=== PATIENT | male | born 1970 | race Caucasian/White ===

== ENCOUNTER 2019-03-16 10:48 | Inpatient (IN) | payer OTHER ==
[2019-03-16] MEDS ORDERED: SODIUM CHLORIDE 0.9% 1000 ML INFUS.BAG IV ONE ×2 (11:19→12:26)
[2019-03-16] MEDS ORDERED: ACETAMINOPHEN 1000 MG/100 ML VIAL (NON FORMULARY) IVPB ONE (11:19)
--- NOTE | 2019-03-16 11:26 | PDOC ---
Documentation entered by Eli Keller SCRIBE, acting as scribe for Debbie Grimaldo DO. Debbie Grimaldo DO: This documentation has been prepared by the Arianna medeiros Adrianna, SCRIBE, under my direction and personally reviewed by me in its entirety. I confirm that the documentation accurately reflects all work, treatment, procedures, and medical decision making performed by me. History of Present Illness - General Chief Complaint: Pain, Acute Stated Complaint: FEVER Time Seen by Provider: 03/16/19 11:06 - History of Present Illness Initial Comments: The patient is a 48 year old male, with a significant PMH of HTN, CKD, and kidney stones, who presents to the ED for evaluation of fever for 2 days. Patient reports developing a subjective fever with cold sweats. He had been able to eat and drink normally at this time. Patient endorses associated low back pain. Patient flew in from [place] 8 days ago, and is staying for the month. He denies any other acute complaints. The patient notes he took his BP medications today, but has not taken anything for his fever at this time. Denies chest pain, SOB, cough, runny nose, sore throat, rash, abdominal pain, diarrhea, constipation, blood in stool, dysuria, hematuria, leg swelling, calf cramping. Allergies: NKA, NKDA Surgical History: Renal stone removal Social History: Denies EtOH, tobacco, or illicit drug use PCP: Not from here ([place]) Past History - Past Medical History Allergies/Adverse Reactions: Allergies Allergy/AdvReac Type Severity Reaction Status Date / Time No Known Allergies Allergy Verified 03/16/19 10:55 COPD: No HTN: Yes Kidney Stones: Yes - Surgical History Abdominal Surgery: (RENAL STONES REMOVED) - Psycho Social/Smoking Cessation Hx Smoking History: Never smoked Hx Alcohol Use: No Drug/Substance Use Hx: No Review of Systems - Review of Systems Comments:: GENERAL/CONSTITUTIONAL: +Subjective fever. +Cold sweats. No weakness. HEAD, EYES, EARS, NOSE AND THROAT: No change in vision. No ear pain or discharge. No sore throat. GASTROINTESTINAL: No nausea, vomiting, diarrhea or constipation. GENITOURINARY: No dysuria, frequency, or change in urination. CARDIOVASCULAR: No chest pain or shortness of breath. RESPIRATORY: No cough, wheezing, or hemoptysis. MUSCULOSKELETAL: +Low back pain. No joint or muscle swelling or pain. No neck pain. SKIN: No rash NEUROLOGIC: No headache, vertigo, loss of consciousness, or change in strength/ sensation. ENDOCRINE: No increased thirst. No abnormal weight change. HEMATOLOGIC/LYMPHATIC: No anemia, easy bleeding, or history of blood clots. ALLERGIC/IMMUNOLOGIC: No hives or skin allergy. *Physical Exam - Vital Signs Last Vital Signs Temp Pulse Resp BP Pulse Ox 98.3 F 103 H 16 129/87 98 03/16/19 10:51 03/16/19 10:51 03/16/19 10:51 03/16/19 10:51 03/16/19 10:51 - Physical Exam Comments: Constitutional: Awake, alert, oriented. No acute distress. Head: Normocephalic. Atraumatic Eyes: PERRL. EOMI. Conjunctivae are not pale. ENT: Mucous membranes are moist and intact. Posterior pharynx without exudates or erythema. Uvula midline. Neck: Supple. Full ROM. No lymphadenopathy. Cardiovascular: +Tachycardic. Regular rhythm. S1, S2 regular. Distal pulses are 2+ and symmetric. Pulmonary/Chest: No evidence of respiratory distress. Clear to auscultation bilaterally No wheezing, rales or rhonchi. Abdominal: +Mild suprapubic tenderness to palpation. Soft and non-distended. No rebound, guarding or rigidity. No organomegaly. No palpable masses. Good bowel sounds. Back: +Mild bilateral CVA tenderness. No step-off, no deformities. Musculoskeletal: No edema. No cyanosis. No clubbing. Full range of motion in all extremities. Nocalf tenderness. Radial/pedal pulses are intact and 2+ bilaterally Skin: Skin is warm and dry. No petechiae. No purpura. Neurological: Alert and oriented to person, place, and time. Cranial nerves II -XII are grossly intact. Normal speech. Strength is grossly symmetric. No sensory deficits. Psychiatric: Good eye contact. Normal interaction, affect and behavior. Heart Score/ECG Review - ECG Intrepretation Comment:: 03/16/19 11:43 sinus tach at 101, L axis, nl interval, lvh, no acute s/tt wave findings ED Treatment Course - LABORATORY CBC & Chemistry Diagram: 03/16/19 11:23 03/16/19 11:23 - RADIOLOGY Radiology Studies Ordered: Category Date Time Status CHEST PA & LAT [RAD] Stat Radiology 03/16/19 11:18 Ordered Radiograph Interpretation: EXAM#: TYPE/EXAM: RESULT: [id number] RAD/CHEST PA LAT Clinical history: 48-year- old with the cough. IMPRESSION: Normal chest films. Reported By: Donaldo Varghese MD 03/16/19 12:12 Medical Decision Making - Medical Decision Making Medical Decision Makin:23a a/p: 48yo male with hx of htn visiting from [facility] - arrived 8 days ago with subjective fever starting last night and back pain -denies trauma -denies dysuria -denies hematuria, rash, n/v/d -no midline ttp, no stepoffs or deformities -neuro intact -mild suprapubic ttp and mild b/l cva ttp -will send labs, ua, ucx -will hydrate -will monitor and reassess -no meds taken other than bp meds bell captain -pt denies leg swelling, calf cramping, no cp/sob, cough, rhinorrhea, sore throat, pleuritic cp 12:37 pt with lactate 4 acute renal failure ua with protein no uti will place lemos catheter for strict I/O case discussed with Dr. Guevara who will see pt in consult in the ED ivf hydration running will send for ct abd/pelvis to eval obstructive pathology and eval back pain/ flank pain call placed to Dr. Regalado for admission 2:48p case discussed with Dr. Regalado who accepts pt to service Discharge - Discharge Information Problems reviewed: Yes Clinical Impression/Diagnosis: Acute renal failure (ARF) Condition: Guarded - Admission Yes - Follow up/Referral - Patient Discharge Instructions - Post Discharge Activity
[2019-03-16] MEDS ORDERED: ACETAMINOPHEN INJECTION 100 ML IVPB ONE (11:36)
[2019-03-16 11:44] LABS: EOS % 3.9 % (0-4.5); HEMATOCRIT 41.9 % (35.4-49); HEMOGLOBIN 14.1 GM/dL (11.7-16.9); MCHC 33.7 g/dl (32.0-35.9); MEAN CELL VOLUME 86.1 fl (80-96); MEAN PLT VOLUME 7.9 fl (7.5-11.1); MONO % 6.1 % (3.8-10.2); PLATELET COUNT 353 K/MM3 (134-434); RBC 4.87 M/mm3 (4.00-5.60); RDW 15.6 % (11.9-15.9); WHITE BLOOD COUNT 10.2 K/mm3 (4.0-10.0)
[2019-03-16 12:01] LABS: INR 1.02 (0.83-1.09)
[2019-03-16 12:08] LABS: EPI CELLS 1.7 /HPF (0-5/HPF); HYALINE CASTS 1 /lpf (0-8); URINE APPEARANCE CLEAR; URINE BACTERIA 0.2 /hpf (NEGATIVE); URINE BILIRUBIN NEGATIVE (NEGATIVE); URINE COLOR YELLOW; URINE GLUCOSE (UA) TRACE (NEGATIVE); URINE KETONE NEGATIVE (NEGATIVE); URINE LEUK ESTERASE NEGATIVE (NEGATIVE); URINE NITRITE NEGATIVE (NEGATIVE); URINE PROTEIN 3+ (NEGATIVE); URINE RBC 1 /hpf (0-4); URINE UROBILINOGEN 0.2 mg/dL (0.2-1.0); URINE WBC 1 /hpf (0-5)
[2019-03-16 12:15] LABS: ALBUMIN 3.3 g/dl (3.4-5.0); BILIRUBIN,TOTAL 0.4 mg/dL (0.2-1); CALCIUM 10.4 mg/dL (8.5-10.1); CREATININE 7.3 mg/dL (0.55-1.3); MAGNESIUM 3.2 mg/dL (1.8-2.4); TOT PROT 7.3 g/dl (6.4-8.2)
--- NOTE | 2019-03-16 12:19 | EKG ---
Test Reason : Blood Pressure : / mmHG Vent. Rate : 101 BPM Atrial Rate : 101 BPM P-R Int : 152 ms QRS Dur : 090 ms QT Int : 350 ms P-R-T Axes : 034 -39 017 degrees QTc Int : 453 ms SINUS TACHYCARDIA LEFT AXIS DEVIATION MODERATE VOLTAGE CRITERIA FOR LVH, MAY BE NORMAL VARIANT ABNORMAL ECG NO PREVIOUS ECGS AVAILABLE Confirmed by LIZZ TAY MD ([id number]) on 03/16/2019 12:19:13 PM Referred By: Confirmed By:LIZZ TAY MD
--- NOTE | 2019-03-16 13:53 | CONSULT ---
Consult Consult Specialty:: Nephrology Reason for Consultation:: CKD - History of Present Illness Chief Complaint: fever History of Present Illness: Pt is a 48 year old male with pmhx of ckd, nephrolithiasis and htn who presents to the ER with fever and malaise for the last few days. I was called to evaluate him for renal failure. He came from [place] last week for vacation. He does have history of CKD and [place] who told him that he has renal disease. He did not have a kidney biopsy. He does not know what his baseline renal function is. He occasionally takes nsaids. He denies dysuria or hematuria. He says he is on one medication for htn but does not know the name. He denies loss of appetite. - History Source History Provided By: Patient - Past Medical History Cardio/Vascular: Yes: HTN Renal/: Yes: Renal Inusuff, Renal Calculi - Alcohol/Substance Use Hx Alcohol Use: No - Smoking History Smoking history: Never smoked Home Medications - Allergies Allergies/Adverse Reactions: Allergies Allergy/AdvReac Type Severity Reaction Status Date / Time No Known Allergies Allergy Verified 03/16/19 10:55 Family Medical History Family History: Denies Review of Systems - Review of Systems Constitutional: reports: Chills, Fever, Malaise Eyes: reports: No Symptoms HENT: reports: No Symptoms Neck: reports: No Symptoms Cardiovascular: reports: No Symptoms Respiratory: reports: No Symptoms Gastrointestinal: reports: No Symptoms Genitourinary: reports: No Symptoms Musculoskeletal: reports: No Symptoms Integumentary: reports: No Symptoms Neurological: reports: No Symptoms Endocrine: reports: No Symptoms Hematology/Lymphatic: reports: No Symptoms Psychiatric: reports: No Symptoms Physical Exam Vital Signs: Vital Signs Temperature 98.3 F 03/16/19 10:51 Pulse Rate 103 H 03/16/19 10:51 Respiratory Rate 16 03/16/19 10:51 Blood Pressure 129/87 03/16/19 10:51 O2 Sat by Pulse Oximetry (%) 98 03/16/19 10:51 Constitutional: Yes: Calm Eyes: Yes: Conjunctiva Clear HENT: Yes: Atraumatic Neck: Yes: Supple Cardiovascular: Yes: S1, S2 Respiratory: Yes: CTA Bilaterally Gastrointestinal: Yes: Soft Renal/: Yes: WNL Musculoskeletal: Yes: WNL Edema: LLE: Trace, RLE: Trace Neurological: Yes: Oriented Psychiatric: Yes: Oriented Labs: CBC, BMP 03/16/19 11:23 03/16/19 11:23 Laboratory Tests 03/16/19 03/16/19 03/16/19 11:23 11:23 11:23 Hgb 14.1 Sodium 133 L Potassium 4.0 BUN 58.0 H Creatinine 7.3 H Lactic Acid 4.3 H* Urine Protein Urine Blood 03/16/19 03/16/19 11:37 16:56 Hgb Sodium Potassium BUN Creatinine Lactic Acid 1.8 Urine Protein 3+ H Urine Blood Trace Imaging - Results Chest X-ray: Report Reviewed Cat Scan: Report Reviewed Problem List - Problems (1) HTN (hypertension) Code(s): I10 - ESSENTIAL (PRIMARY) HYPERTENSION (2) Nephrolithiasis Code(s): N20.0 - CALCULUS OF KIDNEY (3) Acute renal failure (ARF) Code(s): N17.9 - ACUTE KIDNEY FAILURE, UNSPECIFIED Assessment/Plan Current Medications Generic Name Dose Route Start Last Admin Trade Name Freq PRN Reason Stop Dose Admin Influenza Virus Vaccine Quadrival 60 mcg 03/16/19 18:54 Flulaval Quad [id number] IM 03/16/19 18:55 .ONCE ONE Pneumococcal 13-Valent Conj Vacc 0.5 ml 03/16/19 18:54 Prevnar 13 Syringe - IM 03/16/19 18:55 .ONCE ONE Impression 1. MARIO ALBERTO 2. CKD 3. HTN 4. fever 5. leukocytosis Plan - will send renal workup - check prt to distance education coordinator ratio - kidney appear atrophic on ct, check ultrasound - will give fluid trial - send blood cultures - check urine lytes and distance education coordinator - attempt to obtain records from [place] - will follow Dr Guevara
[2019-03-16] MEDS ORDERED: FLU VACCINE QUAD 60 MCG/0.5 ML (MDV 19-20) IM ONE ×2 (19:15→19:30)
[2019-03-16] MEDS ORDERED: PNEUMOC 13-VAL CONJ-DIP CRM/PF 0.5 ML DISP.SYRIN IM ONE (19:30)
--- NOTE | 2019-03-16 19:42 | HP ---
Admitting History and Physical - Primary Care Physician PCP: Shruti Regalado - Admission History of Present Illness: 48 year old male, with a significant PMH of HTN, CKD, and kidney stones, who presents to the ED for evaluation of fever for 2 days. Patient reports developing a subjective fever with cold sweats. He had been able to eat and drink normally at this time. Patient endorses associated low back pain. Patient flew in from [place] 8 days ago, and is staying for the month. He denies any other acute complaints. The patient notes he took his BP medications today, but has not taken anything for his fever at this time. - Past Medical History Cardiovascular: Yes: HTN Renal/: Yes: Renal Inusuff, Renal Calculi - Smoking History Smoking history: Never smoked Have you smoked in the past 12 months: No - Alcohol/Substance Use Hx Alcohol Use: No Home Medications - Allergies Allergies/Adverse Reactions: Allergies Allergy/AdvReac Type Severity Reaction Status Date / Time No Known Allergies Allergy Verified 03/16/19 10:55 - Home Medications Home Medications: Ambulatory Orders Febuxostat [Uloric -] 80 mg PO HS 03/16/19 Nifedipine [Procardia Xl] 30 mg PO DAILY 03/16/19 Physical Examination Vital Signs: Vital Signs Temperature 97.6 F 03/16/19 19:09 Pulse Rate 92 H 03/16/19 19:09 Respiratory Rate 18 03/16/19 19:09 Blood Pressure 147/91 03/16/19 19:09 O2 Sat by Pulse Oximetry (%) 98 03/16/19 19:09 Constitutional: Yes: No Distress HENT: Yes: Atraumatic Neck: Yes: Supple Cardiovascular: Yes: Regular Rate and Rhythm Respiratory: Yes: CTA Bilaterally Gastrointestinal: Yes: Normal Bowel Sounds Extremities: Yes: WNL Edema: No Neurological: Yes: Alert, Oriented Labs: CBC, BMP 03/16/19 11:23 03/16/19 11:23 Problem List - Problems (1) Acute renal failure (ARF) Assessment/Plan: iv hydration renal consult will get cardio eval Code(s): N17.9 - ACUTE KIDNEY FAILURE, UNSPECIFIED (2) CKD (chronic kidney disease) Code(s): N18.9 - CHRONIC KIDNEY DISEASE, UNSPECIFIED Qualifiers: Chronic kidney disease stage: stage 5, not on chronic dialysis Qualified Code(s): N18.5 - Chronic kidney disease, stage 5 (3) HTN (hypertension) Assessment/Plan: monitor Code(s): I10 - ESSENTIAL (PRIMARY) HYPERTENSION Qualifiers: Hypertension type: essential hypertension Qualified Code(s): I10 - Essential (primary) hypertension Assessment/Plan Laboratory Tests 03/16/19 03/16/19 03/16/19 11:23 11:23 11:23 WBC 10.2 H RBC 4.87 Hgb 14.1 Hct 41.9 MCV 86.1 MCH 29.0 MCHC 33.7 RDW 15.6 Plt Count 353 MPV 7.9 Absolute Neuts (auto) 6.9 Neutrophils % 68.0 Lymphocytes % 21.0 Monocytes % 6.1 Eosinophils % 3.9 Basophils % 1.0 Nucleated RBC % 0 PT with INR 12.00 INR 1.02 PTT (Actin FS) 38.0 H Sodium Potassium Chloride Carbon Dioxide Anion Gap BUN Creatinine Est GFR (CKD-EPI)AfAm Est GFR (CKD-EPI)NonAf Random Glucose Lactic Acid Calcium Magnesium Total Bilirubin AST ALT Alkaline Phosphatase Creatine Kinase 52 Troponin I < 0.02 Total Protein Albumin Lipase Urine Color Urine Appearance Urine pH Ur Specific Dixon Urine Protein Urine Glucose (UA) Urine Ketones Urine Blood Urine Nitrite Urine Bilirubin Urine Urobilinogen Ur Leukocyte Esterase Urine WBC (Auto) Urine RBC (Auto) Urine Casts (Auto) U Epithel Cells (Auto) Urine Bacteria (Auto) 03/16/19 03/16/19 03/16/19 11:23 11:23 11:37 WBC RBC Hgb Hct MCV MCH MCHC RDW Plt Count MPV Absolute Neuts (auto) Neutrophils % Lymphocytes % Monocytes % Eosinophils % Basophils % Nucleated RBC % PT with INR INR PTT (Actin FS) Sodium 133 L Potassium 4.0 Chloride 92 L Carbon Dioxide 31 Anion Gap 10 BUN 58.0 H Creatinine 7.3 H Est GFR (CKD-EPI)AfAm 9.35 Est GFR (CKD-EPI)NonAf 8.07 Random Glucose 254 H Lactic Acid 4.3 H* Calcium 10.4 H Magnesium 3.2 H Total Bilirubin 0.4 AST 12 L ALT 24 Alkaline Phosphatase 77 Creatine Kinase Troponin I Total Protein 7.3 Albumin 3.3 L Lipase 290 Urine Color Yellow Urine Appearance Clear Urine pH 8.0 Ur Specific Dixon 1.012 Urine Protein 3+ H Urine Glucose (UA) Trace Urine Ketones Negative Urine Blood Trace Urine Nitrite Negative Urine Bilirubin Negative Urine Urobilinogen 0.2 Ur Leukocyte Esterase Negative Urine WBC (Auto) 1 Urine RBC (Auto) 1 Urine Casts (Auto) 1 U Epithel Cells (Auto) 1.7 Urine Bacteria (Auto) 0.2 03/16/19 16:56 WBC RBC Hgb Hct MCV MCH MCHC RDW Plt Count MPV Absolute Neuts (auto) Neutrophils % Lymphocytes % Monocytes % Eosinophils % Basophils % Nucleated RBC % PT with INR INR PTT (Actin FS) Sodium Potassium Chloride Carbon Dioxide Anion Gap BUN Creatinine Est GFR (CKD-EPI)AfAm Est GFR (CKD-EPI)NonAf Random Glucose Lactic Acid 1.8 Calcium Magnesium Total Bilirubin AST ALT Alkaline Phosphatase Creatine Kinase Troponin I Total Protein Albumin Lipase Urine Color Urine Appearance Urine pH Ur Specific Dixon Urine Protein Urine Glucose (UA) Urine Ketones Urine Blood Urine Nitrite Urine Bilirubin Urine Urobilinogen Ur Leukocyte Esterase Urine WBC (Auto) Urine RBC (Auto) Urine Casts (Auto) U Epithel Cells (Auto) Urine Bacteria (Auto) Active Medications Generic Name Dose Route Start Last Admin Trade Name Freq PRN Reason Stop Dose Admin Acetaminophen 650 mg 03/16/19 19:39 Tylenol - PO Q6H PRN FEVER Heparin Sodium (Porcine) 5,000 unit 03/16/19 22:00 Heparin - SQ BID PHYLICIA Sodium Chloride 1,000 mls @ 75 mls/hr 03/16/19 19:15 1/2 Normal Saline IV ASDIR PHYLICIA Active Medications Generic Name Dose Route Start Last Admin Trade Name Freq PRN Reason Stop Dose Admin Acetaminophen 650 mg 03/16/19 19:39 Tylenol - PO Q6H PRN FEVER Heparin Sodium (Porcine) 5,000 unit 03/16/19 22:00 03/17/19 12:25 Heparin - SQ 5,000 unit BID PHYLICIA Administration Sodium Chloride 1,000 mls @ 75 mls/hr 03/16/19 19:15 03/16/19 23:20 1/2 Normal Saline IV 75 mls/hr ASDIR PHYLICIA Administration
[2019-03-16] MEDS: SODIUM CHLORIDE 0.45% 1,000 ML IV SCH (23:20)
[2019-03-16] MEDS: HEPARIN NA (PORCINE) 5,000 UNITS/ML 1ML VIAL SQ SCH (23:20)
[2019-03-17 08:57] LABS: INR 0.92 (0.83-1.09); PROTHROMBIN TIME (PATIENT) 10.9 SEC (9.7-13.0)
[2019-03-17 09:00] LABS: ACTIVATED PTT 24.5 SECONDS (25.2-36.5)
[2019-03-17 09:08] LABS: EOS % 2.7 % (0-4.5); HEMATOCRIT 45.2 % (35.4-49); HEMOGLOBIN 14.8 GM/dL (11.7-16.9); LYMPH % 9.9 % (8-40); MCH 28.7 pg (25.7-33.7); MCHC 32.7 g/dl (32.0-35.9); MEAN CELL VOLUME 87.9 fl (80-96); MONO % 5.6 % (3.8-10.2); NEUT % 80.8 % (42.8-82.8); PLATELET COUNT 365 K/MM3 (134-434); RBC 5.15 M/mm3 (4.00-5.60); RDW 15.4 % (11.9-15.9); WHITE BLOOD COUNT 11.1 K/mm3 (4.0-10.0)
[2019-03-17 09:13] LABS: ALBUMIN 3.2 g/dl (3.4-5.0); BILIRUBIN,TOTAL 0.6 mg/dL (0.2-1); BLOOD UREA NITROGEN 52.2 mg/dL (7-18); CALCIUM 10.4 mg/dL (8.5-10.1); CREATININE 6.4 mg/dL (0.55-1.3); MAGNESIUM 2.7 mg/dL (1.8-2.4); POTASSIUM 4.2 mmol/L (3.5-5.1); TOT PROT 7.4 g/dl (6.4-8.2)
--- NOTE | 2019-03-17 12:18 | CON.CARD ---
Consult Consult Specialty:: Cardiology Referred by:: Shruti Regalado MD Reason for Consultation:: Hypertensive heart disease - History of Present Illness Chief Complaint: CKD History of Present Illness: Pt is a 48 year old male with pmhx of ckd, nephrolithiasis and htn initially presented to the ER with fever and malaise for the last few days. He came from [place] last week for vacation. He does have history of CKD and [place] who told him that he has renal disease, never had kidney biopsy. He occasionally takes nsaids. He denies chest pain, dyspnea, near or true syncope, palpitations, orthopnea, PND, LE edema, dysuria or hematuria. He says he is on one medication for htn but does not know the name. He denies loss of appetite. Allergies: NKA, NKDA Surgical History: Renal stone removal Social History: Denies EtOH, tobacco, or illicit drug use PCP: Not from here ([place]) - History Source History Provided By: Medical Record Limitations to Obtaining History: Language Barrier - Past Medical History Cardio/Vascular: Yes: HTN Renal/: Yes: Renal Inusuff, Renal Calculi - Alcohol/Substance Use Hx Alcohol Use: No - Smoking History Smoking history: Never smoked Have you smoked in the past 12 months: No Home Medications - Allergies Allergies/Adverse Reactions: Allergies Allergy/AdvReac Type Severity Reaction Status Date / Time No Known Allergies Allergy Verified 03/16/19 10:55 - Home Medications Home Medications: Ambulatory Orders Febuxostat [Uloric -] 80 mg PO HS 03/16/19 Nifedipine [Procardia Xl] 30 mg PO DAILY 03/16/19 Review of Systems - Review of Systems Constitutional: reports: Fever, Malaise Vital Signs: Vital Signs Temperature 98.7 F 03/17/19 07:47 Pulse Rate 100 H 03/17/19 07:47 Respiratory Rate 20 03/17/19 07:47 Blood Pressure 128/72 03/17/19 07:47 O2 Sat by Pulse Oximetry (%) 98 03/16/19 21:00 Constitutional: Yes: No Distress, Calm Neck: Yes: Supple Respiratory: Yes: Regular, CTA Bilaterally Gastrointestinal: Yes: Normal Bowel Sounds, Soft Renal/: Yes: Rick Present Cardiovascular: Yes: Regular Rate and Rhythm JVD: No Carotid Bruit: No Heart Sounds: Yes: S1, S2 Murmur: Yes: Systolic Murmur, Grade 1 Edema: No - Other Data Labs, Other Data: CBC, BMP 03/17/19 07:20 03/17/19 07:20 INR, PTT INR 0.92 (0.83-1.09) 03/17/19 07:20 Troponin, BNP 03/16/19 11:23 Troponin I < 0.02 Troponin, BNP 03/16/19 11:23 Troponin I < 0.02 Imaging - Results Chest X-ray: Report Reviewed (NAD) Problem List - Problems (1) Acute renal failure (ARF) Code(s): N17.9 - ACUTE KIDNEY FAILURE, UNSPECIFIED (2) HTN (hypertension) Code(s): I10 - ESSENTIAL (PRIMARY) HYPERTENSION Qualifiers: Hypertension type: essential hypertension Qualified Code(s): I10 - Essential (primary) hypertension (3) Nephrolithiasis Code(s): N20.0 - CALCULUS OF KIDNEY (4) CKD (chronic kidney disease) Code(s): N18.9 - CHRONIC KIDNEY DISEASE, UNSPECIFIED Qualifiers: Chronic kidney disease stage: stage 5, not on chronic dialysis Qualified Code(s): N18.5 - Chronic kidney disease, stage 5 Assessment/Plan 03/16/2019 Echogenic kidneys c/w medicorenal disease, bilateral renal cysts and left kidney stone 1. Acute on CKD with proteinuria 2. HTN heart disease 3. fever 4. leukocytosis Plan 1. Renal eval including prt to open die inspector ratio 2. Echo to assess ventricular and valve fxn 3. Observe off abx, f/u cultures 4. Thank you for consultative opportunity
[2019-03-17 12:21] VITALS: BMI 30.4
[2019-03-17] MEDS: HEPARIN NA (PORCINE) 5,000 UNITS/ML 1ML VIAL SQ SCH ×2 (12:25→21:12)
--- NOTE | 2019-03-17 15:54 | ECHO ---
Name: FLIP MCKEON Exam:Adult Echocardiogram Study Date: 03/17/2019 02:16 PM Age: 48 yrs Reason For Study: HTN Height: 66 in Weight: 189 lb BSA: 2.0 m2 MMode/2D Measurements & Calculations IVSd: 0.91 cm Ao root diam: 2.6 cm LVIDd: 3.9 cm LVIDs: 2.8 cm LVPWd: 0.85 cm EDV(Teich): 64.7 ml LVOT diam: 2.1 cm ESV(Teich): 28.8 ml Doppler Measurements & Calculations MV E max ej: 69.6 cm/sec Ao V2 max: 139.0 cm/sec MV A max ej: 88.8 cm/sec Ao max P.7 mmHg MV E/A: 0.78 Ao V2 mean: 98.3 cm/sec MV dec time: 0.15 sec Ao mean P.5 mmHg Ao V2 VTI: 19.0 cm JEFE(I,D): 3.2 cm2 JEFE(V,D): 3.0 cm2 LV V1 max P.8 mmHg SV(LVOT): 61.4 ml LV V1 mean P.0 mmHg LV V1 max: 120.6 cm/sec LV V1 mean: 81.7 cm/sec LV V1 VTI: 17.5 cm TR max ej: 218.5 cm/sec Med Peak E' Ej: 9.4 cm/sec TR max P.1 mmHg Med E/e': 7.4 Lat Peak E' Ej: 9.6 cm/sec Lat E/e': 7.3 Procedure A complete two-dimensional transthoracic echocardiogram was performed (2D, M-mode, Doppler and color flow Doppler). Left Ventricle The left ventricular size, thickness and function are normal. The left ventricular ejection fraction is normal. Ejection Fraction = 60-65%. The left ventricular wall motion is normal. Right Ventricle The right ventricle is normal in size and function. Atria Normal left and right atrial size and function. Mitral Valve There is no mitral regurgitation noted. Tricuspid Valve There is trace tricuspid regurgitation. There was insufficient TR detected to calculate RV systolic p ressure. Aortic Valve No hemodynamically significant valvular aortic stenosis. No aortic regurgitation is present. Pulmonic Valve There is no pulmonic valvular regurgitation. Great Vessels The aortic root is normal size. Pericardium/Pleura There is no pericardial effusion. Interpretation Summary The left ventricular size, thickness and function are normal The right ventricle is normal in size and function. There is trace tricuspid regurgitation. MD Cayetano Vides 03/17/2019 03:53 PM
--- NOTE | 2019-03-17 18:00 | PN ---
Progress Note, Physician History of Present Illness: no complaints - Current Medication List Current Medications: Active Medications Acetaminophen (Tylenol -) 650 mg PO Q6H PRN PRN Reason: FEVER Heparin Sodium (Porcine) (Heparin -) 5,000 unit SQ BID [facility] Last Admin: 03/17/19 12:25 Dose: 5,000 unit Sodium Chloride (1/2 Normal Saline) 1,000 mls @ 75 mls/hr IV ASDIR [facility] Last Admin: 03/16/19 23:20 Dose: 75 mls/hr - Objective Vital Signs: Vital Signs Temperature 99.1 F 03/17/19 15:27 Pulse Rate 100 H 03/17/19 15:27 Respiratory Rate 20 03/17/19 15:27 Blood Pressure 133/87 03/17/19 15:27 O2 Sat by Pulse Oximetry (%) 98 03/17/19 09:00 Constitutional: Yes: No Distress HENT: Yes: Atraumatic Neck: Yes: Supple Cardiovascular: Yes: Regular Rate and Rhythm Respiratory: Yes: CTA Bilaterally Gastrointestinal: Yes: Normal Bowel Sounds Extremities: Yes: WNL Neurological: Yes: Alert, Oriented Labs: CBC, BMP 03/17/19 07:20 03/17/19 07:20 INR, PTT INR 0.92 (0.83-1.09) 03/17/19 07:20 Problem List - Problems (1) Acute renal failure (ARF) Assessment/Plan: iv hydration renal consult Code(s): N17.9 - ACUTE KIDNEY FAILURE, UNSPECIFIED (2) CKD (chronic kidney disease) Code(s): N18.9 - CHRONIC KIDNEY DISEASE, UNSPECIFIED Qualifiers: Chronic kidney disease stage: stage 5, not on chronic dialysis Qualified Code(s): N18.5 - Chronic kidney disease, stage 5 (3) HTN (hypertension) Assessment/Plan: monitor Code(s): I10 - ESSENTIAL (PRIMARY) HYPERTENSION Qualifiers: Hypertension type: essential hypertension Qualified Code(s): I10 - Essential (primary) hypertension
--- NOTE | 2019-03-17 19:30 | PN ---
Progress Note, Physician History of Present Illness: Pt seen and examined at bedside. He is awake and alert. He denies shortness of breath. He says his creatinine was 5.7 in [place]. - Current Medication List Current Medications: Active Medications Acetaminophen (Tylenol -) 650 mg PO Q6H PRN PRN Reason: FEVER Heparin Sodium (Porcine) (Heparin -) 5,000 unit SQ BID [facility] Last Admin: 03/17/19 12:25 Dose: 5,000 unit Sodium Chloride (1/2 Normal Saline) 1,000 mls @ 75 mls/hr IV ASDIR [facility] Last Admin: 03/16/19 23:20 Dose: 75 mls/hr - Objective Vital Signs: Vital Signs Temperature 99.1 F 03/17/19 15:27 Pulse Rate 100 H 03/17/19 15:27 Respiratory Rate 20 03/17/19 15:27 Blood Pressure 133/87 03/17/19 15:27 O2 Sat by Pulse Oximetry (%) 98 03/17/19 09:00 Constitutional: Yes: Calm Eyes: Yes: Conjunctiva Clear HENT: Yes: Atraumatic Cardiovascular: Yes: S1, S2 Gastrointestinal: Yes: Soft Genitourinary: Yes: WNL Musculoskeletal: Yes: WNL Edema: No Neurological: Yes: Oriented Psychiatric: Yes: Oriented Labs: CBC, BMP 03/17/19 07:20 03/17/19 07:20 INR, PTT INR 0.92 (0.83-1.09) 03/17/19 07:20 Problem List - Problems (1) HTN (hypertension) Code(s): I10 - ESSENTIAL (PRIMARY) HYPERTENSION Qualifiers: Hypertension type: essential hypertension Qualified Code(s): I10 - Essential (primary) hypertension (2) Nephrolithiasis Code(s): N20.0 - CALCULUS OF KIDNEY (3) Acute renal failure (ARF) Code(s): N17.9 - ACUTE KIDNEY FAILURE, UNSPECIFIED Assessment/Plan Current Medications Generic Name Dose Route Start Last Admin Trade Name Freq PRN Reason Stop Dose Admin Acetaminophen 650 mg 03/16/19 19:39 Tylenol - PO Q6H PRN FEVER Heparin Sodium (Porcine) 5,000 unit 03/16/19 22:00 03/17/19 12:25 Heparin - SQ 5,000 unit BID [facility] Administration Sodium Chloride 1,000 mls @ 75 mls/hr 03/16/19 19:15 03/16/19 23:20 1/2 Normal Saline IV 75 mls/hr ASDIR [facility] Administration Laboratory Tests 03/16/19 03/16/19 03/17/19 16:56 21:15 07:20 Creatinine 6.4 H Lactic Acid 1.8 RANJITH M-Lalo EVE Screen c-ANCA Proteinase 3 (PR3) p-ANCA Atypical p-ANCA Myeloperoxidase Ab Double Strand DNA Ab Glomerular Base Memb Ab HIV P24 Antigen Negative 03/17/19 03/17/19 07:20 07:20 Creatinine Lactic Acid RANJITH M-Lalo Pending EVE Screen Pending c-ANCA Pending Proteinase 3 (PR3) Pending p-ANCA Pending Atypical p-ANCA Pending Myeloperoxidase Ab Pending Double Strand DNA Ab Pending Glomerular Base Memb Ab Pending HIV P24 Antigen Impression 1. MARIO ALBERTO 2. CKD 3. HTN 4. fever 5. 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
[2019-03-18] MEDS: SODIUM CHLORIDE 0.45% 1,000 ML IV SCH ×3 (00:11→21:55)
[2019-03-18 08:43] LABS: ALBUMIN 2.9 g/dl (3.4-5.0); BILIRUBIN,TOTAL 0.5 mg/dL (0.2-1); CALCIUM 10.6 mg/dL (8.5-10.1); CREATININE 6.4 mg/dL (0.55-1.3); PHOSPHOROUS 4.4 mg/dL (2.5-4.9); POTASSIUM 4.2 mmol/L (3.5-5.1); TOT PROT 6.7 g/dl (6.4-8.2)
[2019-03-18] MEDS: HEPARIN NA (PORCINE) 5,000 UNITS/ML 1ML VIAL SQ SCH ×2 (10:25→21:55)
--- NOTE | 2019-03-18 12:32 | PN ---
Progress Note, Physician History of Present Illness: Afebrile, malaise resolve, denies chest pain and dyspnea. - Current Medication List Current Medications: Active Medications Acetaminophen (Tylenol -) 650 mg PO Q6H PRN PRN Reason: FEVER Heparin Sodium (Porcine) (Heparin -) 5,000 unit SQ BID [facility] Last Admin: 03/18/19 10:25 Dose: 5,000 unit Sodium Chloride (1/2 Normal Saline) 1,000 mls @ 75 mls/hr IV ASDIR [facility] Last Admin: 03/18/19 00:12 Dose: Not Given - Objective Vital Signs: Vital Signs Temperature 98.5 F 03/18/19 06:00 Pulse Rate 101 H 03/18/19 06:00 Respiratory Rate 18 03/18/19 06:00 Blood Pressure 121/89 03/18/19 06:00 O2 Sat by Pulse Oximetry (%) 100 03/18/19 09:00 Constitutional: Yes: No Distress, Calm Neck: Yes: Supple Cardiovascular: Yes: Regular Rate and Rhythm Respiratory: Yes: Regular, CTA Bilaterally Gastrointestinal: Yes: Normal Bowel Sounds, Soft Edema: No Labs: CBC, BMP 03/17/19 07:20 03/18/19 07:27 INR, PTT INR 0.92 (0.83-1.09) 03/17/19 07:20 Problem List - Problems (1) Acute renal failure (ARF) Code(s): N17.9 - ACUTE KIDNEY FAILURE, UNSPECIFIED (2) HTN (hypertension) Code(s): I10 - ESSENTIAL (PRIMARY) HYPERTENSION Qualifiers: Hypertension type: essential hypertension Qualified Code(s): I10 - Essential (primary) hypertension (3) Nephrolithiasis Code(s): N20.0 - CALCULUS OF KIDNEY (4) CKD (chronic kidney disease) Code(s): N18.9 - CHRONIC KIDNEY DISEASE, UNSPECIFIED Qualifiers: Chronic kidney disease stage: stage 5, not on chronic dialysis Qualified Code(s): N18.5 - Chronic kidney disease, stage 5 Assessment/Plan 03/17/2019 Echo: Normal LV and RV size and fxn, tr TR 03/16/2019 Echogenic kidneys c/w medicorenal disease, bilateral renal cysts and left kidney stone 1. Acute on CKD with proteinuria 2. HTN heart disease 3. fever 4. leukocytosis Plan 1. 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 Observe off abx, f/u cultures
--- NOTE | 2019-03-18 15:20 | CONSULT ---
- Consultation REQUESTING PROVIDER: Vascular Surgery - Rashid Torres CONSULT REQUEST: We have been asked to surgically evaluate this patient for CKD/ MARIO ALBERTO PCP: Shruti Regalado HPI: Called to evaluate 48 yo male with PMHx of HTN and CKD.Presents to the ED for evaluation of fever for x 2 days. Patient is from [facility] and arrived [place] the [place] ago. Said he will be here in [place] one [place]. States he developed a fever (subjective as he never took his temp) and chills/cold sweats. Family at bedside and cousin who acted as beater room supervisor states he is followed by a [employer] in [place]. Patient states he continues to make urine. He is right hand dominant. Denies n/v, CP, palpitations or peripheral edema. Denies cough, SOB or ABEL. Denies dysuria or hematuria. Denies any mental status changes. 03/17/2019 Echo: Normal LV and RV size and fxn, tr TR 03/16/2019 Echogenic kidneys c/w medicorenal disease, bilateral renal cysts and left kidney stone PMHx: HTN, CKD, Renal Calculi PSHx: ESWL Home Meds Febuxostat [Uloric -] 80 mg PO HS Nifedipine [Procardia Xl] Daily Allergies: NKDA ROS CONSTITUTIONAL: Absent: diaphoresis, generalized weakness, malaise, loss of appetite, weight change CARDIOVASCULAR: Absent: syncope, palpitations, irregular heart rate, lightheadedness RESPIRATORY: Absent: wheezing, stridor, hemoptysis GASTROINTESTINAL:Absent: abdominal pain, abdominal distension,diarrhea, constipation, melena, hematochezia GENITOURINARY: Absent: frequency, urgency, hesitancy, flank pain, genital pain MUSCULOSKELETAL: Absent: myalgia, arthralgia, joint swelling, back pain, neck pain SKIN: Absent: rash, itching, pallor HEMATOLOGIC/IMMUNOLOGIC: Absent: easy bleeding, easy bruising, lymphadenopathy NEUROLOGIC: Absent: headache, focal weakness, paresthesias, dizziness, unsteady gait, seizure PSYCHIATRIC: Absent: anxiety, depression, suicidal or homicidal ideation, hallucinations. PE: GENERAL: Awake, alert, and fully oriented, in no acute distress. HEAD: Normal with no signs of trauma. EYES: PERRL, sclera anicteric, conjunctiva clear. NECK: Normal ROM, supple without lymphadenopathy, JVD, or masses. LUNGS: Clear to auscultation bilat anteriorly. No wheezes, and no crackles. No accessory muscle use. HEART: Regular rate and rhythm. No murmurs ABDOMEN: Soft, nontender, not distended, normoactive bowel sounds, no guarding, no rebound, no masses. No organomegaly. MUSCULOSKELETAL: Normal ROM at all joints. No bony deformities or tenderness. No CVA tenderness. UPPER EXTREMITIES: 2+ pulses, warm, well-perfused. No cyanosis. Cap refill <2 seconds. No peripheral edema. LOWER EXTREMITIES: 2+ pulses, warm, well-perfused. No calf tenderness. No peripheral edema. NEUROLOGICAL: Normal speech, gait not observed. PSYCH: Cooperative. Good eye contact. Appropriate mood and affect. SKIN: Warm, dry, normal turgor, no rashes or lesions noted. Last Vital Signs Temp Pulse Resp BP Pulse Ox 97.8 F 102 H 20 147/100 100 03/18/19 14:42 03/18/19 14:42 03/18/19 14:42 03/18/19 14:42 03/18/19 09:00 TRENDS 03/16/19 03/16/19 03/17/19 03/17/19 03/18/19 11:23 11:23 07:20 07:20 07:27 WBC 10.2 H 11.1 Potassium 4.0 4.2 4.2 BUN 58.0 H 5.2 54 Creatinine 7.3 H 6.4 6.4 Random Glucose 254 H 80 87 Magnesium 3.2 H 2.7 Albumin 3.3 L 2.9 2.9 Urine Test Results Urine Color Yellow 03/16/19 11:37 Urine Appearance Clear 03/16/19 11:37 Urine pH 8.0 (5.0-8.0) 03/16/19 11:37 Ur Specific Aristes 1.012 (1.010-1.035) 03/16/19 11:37 Urine Protein 3+ (NEGATIVE) H 03/16/19 11:37 Urine Glucose (UA) Trace (NEGATIVE) 03/16/19 11:37 Urine Ketones Negative (NEGATIVE) 03/16/19 11:37 Urine Blood Trace (NEGATIVE) 03/16/19 11:37 Urine Nitrite Negative (NEGATIVE) 03/16/19 11:37 Urine Bilirubin Negative (NEGATIVE) 03/16/19 11:37 Ur Leukocyte Esterase Negative (NEGATIVE) 03/16/19 11:37 INR, PTT INR 0.92 (0.83-1.09) 03/17/19 07:20 Problem List - Problems (1) CKD (chronic kidney disease) Assessment/Plan: 48 yo male with CKD. Per Renal note, patient will need creation of AVF on this admission. No need for emergent HD access at this time. If patient will need temporary access our team can place a shiley to be placed and removed after HD (due to leukocytosis with unk source) vs. Permacath once wbc normalizes. Save his LEFT uuper extremity - PRECAUTION --> no bp, iv or phlebotomy LUE vein mapping ordered Trend BUN/Cr Tight glycemic control Above plan discussed with my attending and agrees. Code(s): N18.9 - CHRONIC KIDNEY DISEASE, UNSPECIFIED Qualifiers: Chronic kidney disease stage: stage 5, not on chronic dialysis Qualified Code(s): N18.5 - Chronic kidney disease, stage 5 (2) Leukocytosis Code(s): D72.829 - ELEVATED WHITE BLOOD CELL COUNT, UNSPECIFIED (3) Acute renal failure (ARF) Code(s): N17.9 - ACUTE KIDNEY FAILURE, UNSPECIFIED (4) HTN (hypertension) Code(s): I10 - ESSENTIAL (PRIMARY) HYPERTENSION Qualifiers: Hypertension type: essential hypertension Qualified Code(s): I10 - Essential (primary) hypertension Visit type - Case Type Case Type: ED Admission - Emergency Emergency Visit: Yes ED Registration Date: 03/16/19 Care time: The patient presented to the Emergency Department on the above date and was hospitalized for further evaluation of their emergent condition. - New patient This patient is new to me today: Yes Date on this admission: 03/18/19
--- NOTE | 2019-03-18 17:07 | PN ---
Progress Note, Physician History of Present Illness: no complaints - Current Medication List Current Medications: Active Medications Acetaminophen (Tylenol -) 650 mg PO Q6H PRN PRN Reason: FEVER Heparin Sodium (Porcine) (Heparin -) 5,000 unit SQ BID [facility]CLUD[facility] Last Admin: 03/18/19 10:25 Dose: 5,000 unit Sodium Chloride (1/2 Normal Saline) 1,000 mls @ 75 mls/hr IV ASDIR COUNT INCLUDES [facility] Last Admin: 03/18/19 00:12 Dose: Not Given - Objective Vital Signs: Vital Signs Temperature 98.3 F 03/18/19 14:00 Pulse Rate 103 H 03/18/19 14:00 Respiratory Rate 20 03/18/19 14:00 Blood Pressure 140/103 H 03/18/19 14:00 O2 Sat by Pulse Oximetry (%) 100 03/18/19 09:00 Constitutional: Yes: No Distress HENT: Yes: Atraumatic Neck: Yes: Supple Cardiovascular: Yes: Regular Rate and Rhythm Respiratory: Yes: CTA Bilaterally Gastrointestinal: Yes: Normal Bowel Sounds Extremities: Yes: WNL Edema: No Neurological: Yes: Alert, Oriented Labs: CBC, BMP 03/17/19 07:20 03/18/19 07:27 INR, PTT INR 0.92 (0.83-1.09) 03/17/19 07:20 Problem List - Problems (1) Acute renal failure (ARF) Assessment/Plan: iv hydration renal consult Code(s): N17.9 - ACUTE KIDNEY FAILURE, UNSPECIFIED (2) CKD (chronic kidney disease) Code(s): N18.9 - CHRONIC KIDNEY DISEASE, UNSPECIFIED Qualifiers: Chronic kidney disease stage: stage 5, not on chronic dialysis Qualified Code(s): N18.5 - Chronic kidney disease, stage 5 (3) HTN (hypertension) Assessment/Plan: monitor Code(s): I10 - ESSENTIAL (PRIMARY) HYPERTENSION Qualifiers: Hypertension type: essential hypertension Qualified Code(s): I10 - Essential (primary) hypertension
--- NOTE | 2019-03-18 17:56 | PN ---
Progress Note, Physician History of Present Illness: Pt seen and examined at bedside. He is awake and alert. He denies shortness of breath. He denies fevers. - Current Medication List Current Medications: Active Medications Acetaminophen (Tylenol -) 650 mg PO Q6H PRN PRN Reason: FEVER Heparin Sodium (Porcine) (Heparin -) 5,000 unit SQ BID [facility] Last Admin: 03/18/19 10:25 Dose: 5,000 unit Sodium Chloride (1/2 Normal Saline) 1,000 mls @ 75 mls/hr IV ASDIR [facility] Last Admin: 03/18/19 00:12 Dose: Not Given - Objective Vital Signs: Vital Signs Temperature 98.3 F 03/18/19 14:00 Pulse Rate 103 H 03/18/19 14:00 Respiratory Rate 20 03/18/19 14:00 Blood Pressure 140/103 H 03/18/19 14:00 O2 Sat by Pulse Oximetry (%) 100 03/18/19 09:00 Constitutional: Yes: Calm Eyes: Yes: Conjunctiva Clear HENT: Yes: Atraumatic Neck: Yes: Supple Cardiovascular: Yes: S1, S2 Respiratory: Yes: CTA Bilaterally Gastrointestinal: Yes: Normal Bowel Sounds, Soft Genitourinary: Yes: Rick Present Musculoskeletal: Yes: WNL Edema: No Integumentary: Yes: WNL Neurological: Yes: Oriented Psychiatric: Yes: Oriented Labs: CBC, BMP 03/17/19 07:20 03/18/19 07:27 INR, PTT INR 0.92 (0.83-1.09) 03/17/19 07:20 Problem List - Problems (1) HTN (hypertension) Code(s): I10 - ESSENTIAL (PRIMARY) HYPERTENSION Qualifiers: Hypertension type: essential hypertension Qualified Code(s): I10 - Essential (primary) hypertension (2) Nephrolithiasis Code(s): N20.0 - CALCULUS OF KIDNEY (3) Acute renal failure (ARF) Code(s): N17.9 - ACUTE KIDNEY FAILURE, UNSPECIFIED Assessment/Plan Current Medications Generic Name Dose Route Start Last Admin Trade Name Freq PRN Reason Stop Dose Admin Acetaminophen 650 mg 03/16/19 19:39 Tylenol - PO Q6H PRN FEVER Heparin Sodium (Porcine) 5,000 unit 03/16/19 22:00 03/18/19 10:25 Heparin - SQ 5,000 unit BID [facility] Administration Sodium Chloride 1,000 mls @ 75 mls/hr 03/16/19 19:15 03/18/19 00:12 1/2 Normal Saline IV Not Given ASDIR [facility] Nifedipine 30 mg 03/18/19 18:00 Procardia Xl - PO DAILY [facility] Microbiology 03/16/19 11:37 Urine - Urine Clean Catch Urine Culture - Final NO GROWTH OBTAINED 03/16/19 20:10 Blood - Peripheral Venous Blood Culture - Preliminary NO GROWTH OBTAINED AFTER 24 HOURS, INCUBATION TO CONTINUE FOR 4 DAYS. 03/16/19 20:10 Blood - Peripheral Venous Blood Culture - Preliminary NO GROWTH OBTAINED AFTER 24 HOURS, INCUBATION TO CONTINUE FOR 4 DAYS. Impression 1. MARIO ALBERTO 2. CKD 3. HTN 4. fever 5. 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 Etiology of CKD has been attributed to kidney stones. - follow serologies - vascular eval for fistula - will follow Dr Guevara
[2019-03-18] MEDS: NIFEdipine E.R. 30 MG TABLET (FP) PO SCH (18:07)
[2019-03-19] MEDS: NIFEdipine E.R. 30 MG TABLET (FP) PO SCH (09:40)
[2019-03-19] MEDS: HEPARIN NA (PORCINE) 5,000 UNITS/ML 1ML VIAL SQ SCH ×2 (09:40→21:47)
--- NOTE | 2019-03-19 11:47 | PN ---
Progress Note, Physician Chief Complaint: Not in distress History of Present Illness: Patient was seen and examined. Awake and alert. Chart was reviewed Denies chest pain, SOB or palpitations - Current Medication List Current Medications: Active Medications Acetaminophen (Tylenol -) 650 mg PO Q6H PRN PRN Reason: FEVER Heparin Sodium (Porcine) (Heparin -) 5,000 unit SQ BID [facility] Last Admin: 03/19/19 09:40 Dose: 5,000 unit Sodium Chloride (1/2 Normal Saline) 1,000 mls @ 75 mls/hr IV ASDIR [facility] Last Admin: 03/18/19 21:55 Dose: 75 mls/hr Nifedipine (Procardia Xl -) 30 mg PO DAILY [facility] Last Admin: 03/19/19 09:40 Dose: 30 mg - Objective Vital Signs: Vital Signs Temperature 98.1 F 03/19/19 07:57 Pulse Rate 103 H 03/19/19 07:57 Respiratory Rate 20 03/19/19 07:57 Blood Pressure 130/85 03/19/19 07:57 O2 Sat by Pulse Oximetry (%) 100 03/18/19 21:00 Eyes: Yes: PERRL HENT: Yes: Atraumatic Neck: Yes: Supple Cardiovascular: Yes: Regular Rate and Rhythm, S1, S2 Respiratory: Yes: CTA Bilaterally Gastrointestinal: Yes: Normal Bowel Sounds, Soft. No: Tenderness Edema: No Labs: CBC, BMP 03/17/19 07:20 03/18/19 07:27 INR, PTT INR 0.92 (0.83-1.09) 03/17/19 07:20 Problem List - Problems (1) CKD (chronic kidney disease) Code(s): N18.9 - CHRONIC KIDNEY DISEASE, UNSPECIFIED Qualifiers: Chronic kidney disease stage: stage 5, not on chronic dialysis Qualified Code(s): N18.5 - Chronic kidney disease, stage 5 (2) HTN (hypertension) Code(s): I10 - ESSENTIAL (PRIMARY) HYPERTENSION Qualifiers: Hypertension type: essential hypertension Qualified Code(s): I10 - Essential (primary) hypertension (3) Leukocytosis Code(s): D72.829 - ELEVATED WHITE BLOOD CELL COUNT, UNSPECIFIED (4) Nephrolithiasis Code(s): N20.0 - CALCULUS OF KIDNEY Assessment/Plan 1. Acute on CKD with proteinuria 2. HTN 3. leukocytosis PLAN: 1. Renal evaluation for possible HD 2. Observe off antibiotics. Monitor WBC Further plans are to follow Harris Crespo MD
--- NOTE | 2019-03-19 12:07 | PN ---
Progress Note, Physician - Current Medication List Current Medications: Active Medications Acetaminophen (Tylenol -) 650 mg PO Q6H PRN PRN Reason: FEVER Heparin Sodium (Porcine) (Heparin -) 5,000 unit SQ BID [facility] Last Admin: 03/19/19 09:40 Dose: 5,000 unit Sodium Chloride (1/2 Normal Saline) 1,000 mls @ 75 mls/hr IV ASDIR [facility] Last Admin: 03/18/19 21:55 Dose: 75 mls/hr Nifedipine (Procardia Xl -) 30 mg PO DAILY [facility] Last Admin: 03/19/19 09:40 Dose: 30 mg - Objective Vital Signs: Vital Signs Temperature 98.1 F 03/19/19 07:57 Pulse Rate 103 H 03/19/19 07:57 Respiratory Rate 20 03/19/19 07:57 Blood Pressure 130/85 03/19/19 07:57 O2 Sat by Pulse Oximetry (%) 100 03/18/19 21:00 Constitutional: Yes: No Distress HENT: Yes: Atraumatic Neck: Yes: Supple Cardiovascular: Yes: Regular Rate and Rhythm Respiratory: Yes: CTA Bilaterally Gastrointestinal: Yes: Normal Bowel Sounds Extremities: Yes: WNL Edema: No Neurological: Yes: Alert, Oriented Labs: CBC, BMP 03/17/19 07:20 03/18/19 07:27 INR, PTT INR 0.92 (0.83-1.09) 03/17/19 07:20 Problem List - Problems (1) Acute renal failure (ARF) Assessment/Plan: iv hydration renal consult Code(s): N17.9 - ACUTE KIDNEY FAILURE, UNSPECIFIED (2) CKD (chronic kidney disease) Code(s): N18.9 - CHRONIC KIDNEY DISEASE, UNSPECIFIED Qualifiers: Chronic kidney disease stage: stage 5, not on chronic dialysis Qualified Code(s): N18.5 - Chronic kidney disease, stage 5 (3) HTN (hypertension) Assessment/Plan: monitor Code(s): I10 - ESSENTIAL (PRIMARY) HYPERTENSION Qualifiers: Hypertension type: essential hypertension Qualified Code(s): I10 - Essential (primary) hypertension
[2019-03-19 15:09] LABS: HEP B CORE AB, TOT Negative (Negative)
[2019-03-19] MEDS: ACETAMINOPHEN 325 MG TABLET (FP) PO PRN ×2 (17:16→23:34)
[2019-03-19] MEDS: SODIUM CHLORIDE 0.45% 1,000 ML IV SCH ×2 (17:16→21:45)
--- NOTE | 2019-03-19 19:02 | PN ---
Progress Note (short form) - Note Progress Note: covering dr copeland problems 1. MARIO ALBERTO 2. CKD 3. HTN 4. fever 5. leukocytosis Active Medications Acetaminophen (Tylenol -) 650 mg PO Q6H PRN PRN Reason: FEVER Last Admin: 03/19/19 17:16 Dose: 650 mg Heparin Sodium (Porcine) (Heparin -) 5,000 unit SQ BID [facility] Last Admin: 03/19/19 09:40 Dose: 5,000 unit Sodium Chloride (1/2 Normal Saline) 1,000 mls @ 75 mls/hr IV ASDIR [facility] Last Admin: 03/19/19 17:16 Dose: 75 mls/hr Nifedipine (Procardia Xl -) 30 mg PO DAILY [facility] Last Admin: 03/19/19 09:40 Dose: 30 mg Last Vital Signs Temp Pulse Resp BP Pulse Ox 100.1 F H 113 H 20 148/100 100 03/19/19 17:20 03/19/19 17:20 03/19/19 17:20 03/19/19 17:20 03/19/19 09:00 CBC, BMP 03/17/19 07:20 03/18/19 07:[address] copeland - follow serologies - vascular eval for fistula - will follow
[2019-03-20] MEDS: HEPARIN NA (PORCINE) 5,000 UNITS/ML 1ML VIAL SQ SCH ×2 (10:39→21:39)
[2019-03-20] MEDS: NIFEdipine E.R. 30 MG TABLET (FP) PO SCH (10:39)
[2019-03-20] MEDS: ACETAMINOPHEN 325 MG TABLET (FP) PO PRN ×2 (10:40→21:38)
--- NOTE | 2019-03-20 14:33 | PN ---
Progress Note, Physician - Current Medication List Current Medications: Active Medications Acetaminophen (Tylenol -) 650 mg PO Q6H PRN PRN Reason: FEVER Last Admin: 03/20/19 10:40 Dose: 650 mg Heparin Sodium (Porcine) (Heparin -) 5,000 unit SQ BID [facility] Last Admin: 03/20/19 10:39 Dose: 5,000 unit Sodium Chloride (1/2 Normal Saline) 1,000 mls @ 75 mls/hr IV ASDIR [facility] Last Admin: 03/19/19 21:45 Dose: Not Given Nifedipine (Procardia Xl -) 30 mg PO DAILY [facility] Last Admin: 03/20/19 10:39 Dose: 30 mg - Objective Vital Signs: Vital Signs Temperature 98.4 F 03/20/19 10:39 Pulse Rate 94 H 03/20/19 10:39 Respiratory Rate 20 03/20/19 10:39 Blood Pressure 144/98 03/20/19 10:39 O2 Sat by Pulse Oximetry (%) 97 03/19/19 21:00 Constitutional: Yes: No Distress HENT: Yes: Atraumatic Neck: Yes: Supple Cardiovascular: Yes: Regular Rate and Rhythm Respiratory: Yes: CTA Bilaterally Gastrointestinal: Yes: Normal Bowel Sounds Extremities: Yes: WNL Neurological: Yes: Alert, Oriented Labs: CBC, BMP 03/17/19 07:20 03/18/19 07:27 INR, PTT INR 0.92 (0.83-1.09) 03/17/19 07:20 Problem List - Problems (1) Acute renal failure (ARF) Assessment/Plan: for HD Code(s): N17.9 - ACUTE KIDNEY FAILURE, UNSPECIFIED (2) CKD (chronic kidney disease) Code(s): N18.9 - CHRONIC KIDNEY DISEASE, UNSPECIFIED Qualifiers: Chronic kidney disease stage: stage 5, not on chronic dialysis Qualified Code(s): N18.5 - Chronic kidney disease, stage 5 (3) HTN (hypertension) Assessment/Plan: monitor Code(s): I10 - ESSENTIAL (PRIMARY) HYPERTENSION Qualifiers: Hypertension type: essential hypertension Qualified Code(s): I10 - Essential (primary) hypertension
--- NOTE | 2019-03-20 16:40 | PN ---
Progress Note (short form) - Note Progress Note: covering dr copeland problems 1. MARIO ALBERTO? improved somewhat here 2. CKD 5 3. HTN Current Medications Acetaminophen (Tylenol -) 650 mg PO Q6H PRN PRN Reason: FEVER Last Admin: 03/20/19 10:40 Dose: 650 mg Heparin Sodium (Porcine) (Heparin -) 5,000 unit SQ BID [facility] Last Admin: 03/20/19 10:39 Dose: 5,000 unit Sodium Chloride (1/2 Normal Saline) 1,000 mls @ 75 mls/hr IV ASDIR [facility] Last Admin: 03/19/19 21:45 Dose: Not Given Nifedipine (Procardia Xl -) 30 mg PO DAILY [facility] Last Admin: 03/20/19 10:39 Dose: 30 mg Last Vital Signs Temp Pulse Resp BP Pulse Ox 98.8 F 96 H 20 138/90 97 03/20/19 14:00 03/20/19 14:00 03/20/19 14:00 03/20/19 14:00 03/19/19 21:00 alert c/o left knee pain has h/o gout in DR Lungs clear Heart reg Abd soft nontender Ext no edema CBC, BMP 03/17/19 07:20 03/18/19 07:27 IMP- CKD stage 5 no uremic sx Plan per dr copeland - follow serologies - vascular eval for fistula for vein mapping tomorrow - will follow
[2019-03-20] MEDS: SODIUM CHLORIDE 0.45% 1,000 ML IV SCH (21:39)
[2019-03-21] MEDS: SODIUM CHLORIDE 0.45% 1,000 ML IV SCH ×3 (01:39→19:19)
[2019-03-21 08:58] LABS: ALBUMIN 2.9 g/dl (3.4-5.0); BILIRUBIN,TOTAL 0.5 mg/dL (0.2-1); BLOOD UREA NITROGEN 60.8 mg/dL (7-18); CALCIUM 10.2 mg/dL (8.5-10.1); CREATININE 6.1 mg/dL (0.55-1.3); POTASSIUM 4.1 mmol/L (3.5-5.1); URIC ACID 7.8 mg/dL (2.6-7.2)
--- NOTE | 2019-03-21 10:36 | PN ---
Progress Note, Physician History of Present Illness: Ambulating w/o complaints, denies chest pain and dyspnea. - Current Medication List Current Medications: Active Medications Acetaminophen (Tylenol -) 650 mg PO Q6H PRN PRN Reason: FEVER Last Admin: 03/20/19 21:38 Dose: 650 mg Heparin Sodium (Porcine) (Heparin -) 5,000 unit SQ BID [facility] Last Admin: 03/20/19 21:39 Dose: 5,000 unit Sodium Chloride (1/2 Normal Saline) 1,000 mls @ 75 mls/hr IV ASDIR [facility] Last Admin: 03/21/19 01:39 Dose: 75 mls/hr Nifedipine (Procardia Xl -) 30 mg PO DAILY [facility] Last Admin: 03/20/19 10:39 Dose: 30 mg - Objective Vital Signs: Vital Signs Temperature 99 F 03/21/19 06:00 Pulse Rate 105 H 03/21/19 06:00 Respiratory Rate 18 03/21/19 06:00 Blood Pressure 134/96 03/21/19 06:00 O2 Sat by Pulse Oximetry (%) 99 03/20/19 21:00 Constitutional: Yes: No Distress, Calm Neck: Yes: Supple Cardiovascular: Yes: Regular Rate and Rhythm Respiratory: Yes: Regular, CTA Bilaterally Gastrointestinal: Yes: Normal Bowel Sounds, Soft Edema: No Labs: CBC, BMP 03/17/19 07:20 03/21/19 06:40 INR, PTT INR 0.92 (0.83-1.09) 03/17/19 07:20 Problem List - Problems (1) Acute renal failure (ARF) Code(s): N17.9 - ACUTE KIDNEY FAILURE, UNSPECIFIED (2) HTN (hypertension) Code(s): I10 - ESSENTIAL (PRIMARY) HYPERTENSION Qualifiers: Hypertension type: essential hypertension Qualified Code(s): I10 - Essential (primary) hypertension (3) Nephrolithiasis Code(s): N20.0 - CALCULUS OF KIDNEY (4) CKD (chronic kidney disease) Code(s): N18.9 - CHRONIC KIDNEY DISEASE, UNSPECIFIED Qualifiers: Chronic kidney disease stage: stage 5, not on chronic dialysis Qualified Code(s): N18.5 - Chronic kidney disease, stage 5 Assessment/Plan 03/17/2019 Echo: Normal LV and RV size and fxn, tr TR 03/16/2019 Echogenic kidneys c/w medicorenal disease, bilateral renal cysts and left kidney stone 1. Acute on CKD V with proteinuria 2. HTN 3. Leukocytosis PLAN: 1. Renal evaluation for possible HD, vein mapping for AVF 2. Observe off antibiotics. Monitor WBC 3. Continue Procardia XL 30 qd
[2019-03-21] MEDS: NIFEdipine E.R. 30 MG TABLET (FP) PO SCH (11:02)
[2019-03-21] MEDS: HEPARIN NA (PORCINE) 5,000 UNITS/ML 1ML VIAL SQ SCH ×2 (11:03→21:28)
[2019-03-21 11:07] LABS: ANTIGLOMERULAR BASEMENT MEN.AB 3 units (0-20)
--- NOTE | 2019-03-21 14:17 | PN ---
Progress Note, Physician History of Present Illness: Pt seen and examined at bedside. He is awake and alert. He is considering PD vs HD however is not ready to get access. - Current Medication List Current Medications: Active Medications Acetaminophen (Tylenol -) 650 mg PO Q6H PRN PRN Reason: FEVER Last Admin: 03/20/19 21:38 Dose: 650 mg Heparin Sodium (Porcine) (Heparin -) 5,000 unit SQ BID [facility] Last Admin: 03/21/19 11:03 Dose: 5,000 unit Sodium Chloride (1/2 Normal Saline) 1,000 mls @ 75 mls/hr IV ASDIR [facility] Last Admin: 03/21/19 12:54 Dose: 75 mls/hr Nifedipine (Procardia Xl -) 30 mg PO DAILY [facility] Last Admin: 03/21/19 11:02 Dose: 30 mg - Objective Vital Signs: Vital Signs Temperature 99 F 03/21/19 06:00 Pulse Rate 105 H 03/21/19 06:00 Respiratory Rate 18 03/21/19 06:00 Blood Pressure 134/96 03/21/19 06:00 O2 Sat by Pulse Oximetry (%) 99 03/20/19 21:00 Constitutional: Yes: Calm Eyes: Yes: Conjunctiva Clear HENT: Yes: Atraumatic Neck: Yes: Supple Cardiovascular: Yes: S1, S2 Respiratory: Yes: CTA Bilaterally Gastrointestinal: Yes: Soft Genitourinary: Yes: WNL Musculoskeletal: Yes: WNL Edema: No Neurological: Yes: Oriented Psychiatric: Yes: Oriented Labs: CBC, BMP 03/17/19 07:20 03/21/19 06:40 INR, PTT INR 0.92 (0.83-1.09) 03/17/19 07:20 Problem List - Problems (1) HTN (hypertension) Code(s): I10 - ESSENTIAL (PRIMARY) HYPERTENSION Qualifiers: Hypertension type: essential hypertension Qualified Code(s): I10 - Essential (primary) hypertension (2) Nephrolithiasis Code(s): N20.0 - CALCULUS OF KIDNEY (3) Acute renal failure (ARF) Code(s): N17.9 - ACUTE KIDNEY FAILURE, UNSPECIFIED Assessment/Plan Current Medications Generic Name Dose Route Start Last Admin Trade Name Freq PRN Reason Stop Dose Admin Acetaminophen 650 mg 03/16/19 19:39 03/20/19 21:38 Tylenol - PO 650 mg Q6H PRN Administration FEVER Heparin Sodium (Porcine) 5,000 unit 03/16/19 22:00 03/21/19 11:03 Heparin - SQ 5,000 unit BID [facility] Administration Sodium Chloride 1,000 mls @ 75 mls/hr 03/16/19 19:15 03/21/19 12:54 1/2 Normal Saline IV 75 mls/hr ASDIR [facility] Administration Nifedipine 30 mg 03/18/19 18:00 03/21/19 11:02 Procardia Xl - PO 30 mg DAILY [facility] Administration Impression 1. MARIO ALBERTO 2. CKD 3. HTN 4. fever 5. 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
--- NOTE | 2019-03-21 17:33 | PN ---
Progress Note, Physician - Current Medication List Current Medications: Active Medications Acetaminophen (Tylenol -) 650 mg PO Q6H PRN PRN Reason: FEVER Last Admin: 03/20/19 21:38 Dose: 650 mg Heparin Sodium (Porcine) (Heparin -) 5,000 unit SQ BID [facility] Last Admin: 03/21/19 11:03 Dose: 5,000 unit Sodium Chloride (1/2 Normal Saline) 1,000 mls @ 75 mls/hr IV ASDIR [facility] Last Admin: 03/21/19 12:54 Dose: 75 mls/hr Nifedipine (Procardia Xl -) 30 mg PO DAILY [facility] Last Admin: 03/21/19 11:02 Dose: 30 mg - Objective Vital Signs: Vital Signs Temperature 98.4 F 03/21/19 14:00 Pulse Rate 96 H 03/21/19 14:00 Respiratory Rate 20 03/21/19 14:00 Blood Pressure 138/95 03/21/19 14:00 O2 Sat by Pulse Oximetry (%) 99 03/20/19 21:00 Constitutional: Yes: No Distress HENT: Yes: Atraumatic Neck: Yes: Supple Cardiovascular: Yes: Regular Rate and Rhythm Respiratory: Yes: CTA Bilaterally Gastrointestinal: Yes: Normal Bowel Sounds Extremities: Yes: WNL Neurological: Yes: Alert, Oriented Labs: CBC, BMP 03/17/19 07:20 03/21/19 06:40 INR, PTT INR 0.92 (0.83-1.09) 03/17/19 07:20 Problem List - Problems (1) Acute renal failure (ARF) Assessment/Plan: for HD Code(s): N17.9 - ACUTE KIDNEY FAILURE, UNSPECIFIED (2) CKD (chronic kidney disease) Assessment/Plan: renal note reviewed for HD /PDneed to know plan as pt wants to go home Code(s): N18.9 - CHRONIC KIDNEY DISEASE, UNSPECIFIED Qualifiers: Chronic kidney disease stage: stage 5, not on chronic dialysis Qualified Code(s): N18.5 - Chronic kidney disease, stage 5 (3) HTN (hypertension) Assessment/Plan: monitor Code(s): I10 - ESSENTIAL (PRIMARY) HYPERTENSION Qualifiers: Hypertension type: essential hypertension Qualified Code(s): I10 - Essential (primary) hypertension
[2019-03-21 18:10] LABS: ATYPICAL pANCA <1:20 titer (Neg:<1:20); C-ANCA <1:20 titer (Neg:<1:20)
--- NOTE | 2019-03-21 18:11 | DS ---
Physical Examination Vital Signs: Vital Signs Temperature 98.7 F 03/21/19 16:35 Pulse Rate 104 H 03/21/19 16:35 Respiratory Rate 20 03/21/19 16:35 Blood Pressure 137/82 03/21/19 16:35 O2 Sat by Pulse Oximetry (%) 99 03/20/19 21:00 Constitutional: Yes: No Distress HENT: Yes: Atraumatic Neck: Yes: Supple Cardiovascular: Yes: Regular Rate and Rhythm Respiratory: Yes: CTA Bilaterally Gastrointestinal: Yes: Normal Bowel Sounds Extremities: Yes: WNL Neurological: Yes: Alert, Oriented Labs: CBC, BMP 03/17/19 07:20 03/21/19 06:40 Discharge Summary Reason For Visit: ACUTE RENAL FAILURE Current Active Problems Acute renal failure (ARF) (Acute) CKD (chronic kidney disease) (Acute) HTN (hypertension) (Acute) Leukocytosis (Acute) Nephrolithiasis (Acute) Condition: Good - Instructions Diet, Activity, Other Instructions: Post-operative Instructions Wound: Keep your dressing clean and dry and in place for 72 hours. You may shower in 48 hours with a waterproof bag or Saran wrap over the original dressing. In 72 hours when you remove the dressing, you may wet the incision in the shower ONLY, do not submerge the incision. Allow soap and water to run over the incision, do not scrub the incision, pat dry well after showering. Check the incision daily after removal of the dressing for redness or drainage. If you note any redness or drainage, contact your surgeon immediately. Do not swim or soak in water (bath/hot tub, etc) until cleared by your surgeon as this can lead to infection. Do not put creams or ointments on the wound until cleared by your surgeon. Diet: You may resume your regular diet unless otherwise instructed by your physician. Increase your fiber intake if taking narcotic pain medications as constipation is a common side effect. Pain Relief: Take pain medication as prescribed. Do not drive, drink alcohol or operate heavy machinery while taking narcotic pain medications. The pain medication you have been prescribed for pain contains Acetaminophen (Tylenol), do not take additional Tylenol with this pain medication. You should not exceed more than 4g (4000mg) of Tylenol in 24 hours as this can lead to liver damage or failure. Activity: No heavy lifting with your operative arm until cleared by your surgeon. Do no wear any occlusive jewelry on your operative arm as this can affect the functioning of your fistula. Follow-up Please call the office to schedule your follow up appointment in 2 weeks. Call your doctors office or go to the ER immediately if you develop: Trouble breathing, chest tightness or shortness of breath Oral temperature greater than 100.5 F Excessive redness, swelling, or drainage at the incision site. Foul odor from the incision. New, increasing pain/numbness/weakness or coolness in your arm. Follow up with Dr Torres as outpatient. 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
[2019-03-21] MEDS: ACETAMINOPHEN 325 MG TABLET (FP) PO PRN (21:29)
[2019-03-22] MEDS: SODIUM CHLORIDE 0.45% 1,000 ML IV SCH (01:46)
[2019-03-22] MEDS: ACETAMINOPHEN 325 MG TABLET (FP) PO PRN (04:54)
--- NOTE | 2019-03-22 08:30 | PN ---
Progress Note (short form) - Note Progress Note: VACULAR SURGERY Patient with known CKD. Not on HD. Patient visiting from [place]. Dr. Guevara/Renal has spoken with patient's Human Resource Officer. No need for HD at this time despite ^ BUN/Cr. Patient wishes to return to [place] and been seen by his Human Resource Officer. Reconsult Vascular PRN On behalf of Dr. Torres, thank you for the opportunity to participate in your patient's care. Problem List - Problems (1) CKD (chronic kidney disease) Code(s): N18.9 - CHRONIC KIDNEY DISEASE, UNSPECIFIED Qualifiers: Chronic kidney disease stage: stage 5, not on chronic dialysis Qualified Code(s): N18.5 - Chronic kidney disease, stage 5 (2) Leukocytosis Code(s): D72.829 - ELEVATED WHITE BLOOD CELL COUNT, UNSPECIFIED (3) Acute renal failure (ARF) Code(s): N17.9 - ACUTE KIDNEY FAILURE, UNSPECIFIED (4) HTN (hypertension) Code(s): I10 - ESSENTIAL (PRIMARY) HYPERTENSION Qualifiers: Hypertension type: essential hypertension Qualified Code(s): I10 - Essential (primary) hypertension
[2019-03-22] MEDS: NIFEdipine E.R. 30 MG TABLET (FP) PO SCH (10:59)
[2019-03-22] MEDS: HEPARIN NA (PORCINE) 5,000 UNITS/ML 1ML VIAL SQ SCH ×2 (10:59→21:26)
--- NOTE | 2019-03-22 15:18 | PN ---
Progress Note, Physician History of Present Illness: Pt seen and examined at bedside. He is now asking for a fistula to be placed. - Current Medication List Current Medications: Active Medications Acetaminophen (Tylenol -) 650 mg PO Q6H PRN PRN Reason: FEVER Last Admin: 03/22/19 04:54 Dose: 650 mg Heparin Sodium (Porcine) (Heparin -) 5,000 unit SQ BID [facility] Last Admin: 03/22/19 10:59 Dose: 5,000 unit Sodium Chloride (1/2 Normal Saline) 1,000 mls @ 75 mls/hr IV ASDIR [facility] Last Admin: 03/22/19 01:46 Dose: 75 mls/hr Nifedipine (Procardia Xl -) 30 mg PO DAILY [facility] Last Admin: 03/22/19 10:59 Dose: 30 mg - Objective Vital Signs: Vital Signs Temperature 98.1 F 03/22/19 10:00 Pulse Rate 91 H 03/22/19 10:00 Respiratory Rate 20 03/22/19 10:00 Blood Pressure 145/95 03/22/19 10:00 O2 Sat by Pulse Oximetry (%) 99 03/22/19 09:00 Constitutional: Yes: Calm Eyes: Yes: Conjunctiva Clear HENT: Yes: Atraumatic Neck: Yes: Supple Cardiovascular: Yes: S1, S2 Respiratory: Yes: CTA Bilaterally Gastrointestinal: Yes: Soft Genitourinary: Yes: WNL Musculoskeletal: Yes: WNL Edema: No Neurological: Yes: Oriented Psychiatric: Yes: Oriented Labs: CBC, BMP 03/17/19 07:20 03/21/19 06:40 INR, PTT INR 0.92 (0.83-1.09) 03/17/19 07:20 Problem List - Problems (1) HTN (hypertension) Code(s): I10 - ESSENTIAL (PRIMARY) HYPERTENSION Qualifiers: Hypertension type: essential hypertension Qualified Code(s): I10 - Essential (primary) hypertension (2) Nephrolithiasis Code(s): N20.0 - CALCULUS OF KIDNEY (3) Acute renal failure (ARF) Code(s): N17.9 - ACUTE KIDNEY FAILURE, UNSPECIFIED Assessment/Plan Current Medications Generic Name Dose Route Start Last Admin Trade Name Freq PRN Reason Stop Dose Admin Acetaminophen 650 mg 03/16/19 19:39 03/22/19 04:54 Tylenol - PO 650 mg Q6H PRN Administration FEVER Heparin Sodium (Porcine) 5,000 unit 03/16/19 22:00 03/22/19 10:59 Heparin - SQ 5,000 unit BID [facility] Administration Sodium Chloride 1,000 mls @ 75 mls/hr 03/16/19 19:15 03/22/19 01:46 1/2 Normal Saline IV 75 mls/hr ASDIR [facility] Administration Nifedipine 30 mg 03/18/19 18:00 03/22/19 10:59 Procardia Xl - PO 30 mg DAILY [facility] Administration Impression 1. MARIO ALBERTO 2. CKD 3. HTN 4. fever 5. leukocytosis Plan - d/c fluids - recall surgery for fistula - increase procardia to 60 mg - pt wants HD and is asking for a fistula - will follow Dr Guevara
[2019-03-22] MEDS ORDERED: NIFEdipine E.R. 30 MG TABLET (FP) PO ONE (15:30)
--- NOTE | 2019-03-22 19:53 | PN ---
Progress Note, Physician History of Present Illness: L knee pain - Current Medication List Current Medications: Active Medications Acetaminophen (Tylenol -) 650 mg PO Q6H PRN PRN Reason: FEVER Last Admin: 03/22/19 04:54 Dose: 650 mg Heparin Sodium (Porcine) (Heparin -) 5,000 unit SQ BID [facility] Last Admin: 03/22/19 10:59 Dose: 5,000 unit Nifedipine (Procardia Xl -) 60 mg PO DAILY [facility] - Objective Vital Signs: Vital Signs Temperature 98.7 F 03/22/19 16:30 Pulse Rate 91 H 03/22/19 16:30 Respiratory Rate 20 03/22/19 16:30 Blood Pressure 127/88 03/22/19 16:30 O2 Sat by Pulse Oximetry (%) 99 03/22/19 09:00 Constitutional: Yes: No Distress HENT: Yes: Atraumatic Neck: Yes: Supple Cardiovascular: Yes: Regular Rate and Rhythm Respiratory: Yes: CTA Bilaterally Gastrointestinal: Yes: Normal Bowel Sounds Extremities: Yes: Other (L knee swollen) Neurological: Yes: Alert, Oriented Labs: CBC, BMP 03/17/19 07:20 03/21/19 06:40 INR, PTT INR 0.92 (0.83-1.09) 03/17/19 07:20 Problem List - Problems (1) Acute renal failure (ARF) Assessment/Plan: for HD need vascular to put fistula uptil now patient keep on changing his mind regarding treatment Code(s): N17.9 - ACUTE KIDNEY FAILURE, UNSPECIFIED (2) CKD (chronic kidney disease) Code(s): N18.9 - CHRONIC KIDNEY DISEASE, UNSPECIFIED Qualifiers: Chronic kidney disease stage: stage 5, not on chronic dialysis Qualified Code(s): N18.5 - Chronic kidney disease, stage 5 (3) HTN (hypertension) Code(s): I10 - ESSENTIAL (PRIMARY) HYPERTENSION Qualifiers: Hypertension type: essential hypertension Qualified Code(s): I10 - Essential (primary) hypertension (4) Gout attack Assessment/Plan: pt not ure about gout will check uric acid level consult ortho Code(s): M10.9 - GOUT, UNSPECIFIED
[2019-03-22] MEDS ORDERED: ACETAMINOPHEN 325 MG TABLET (FP) PO PRN (20:32)
[2019-03-23] MEDS: NIFEdipine E.R. 30 MG TABLET (FP) PO SCH (10:14)
[2019-03-23] MEDS: HEPARIN NA (PORCINE) 5,000 UNITS/ML 1ML VIAL SQ SCH (10:15)
--- NOTE | 2019-03-23 11:22 | CON.ORTH ---
Consult Reason for Consultation:: left knee pain - Past Medical History Cardio/Vascular: Yes: HTN Renal/: Yes: Renal Inusuff, Renal Calculi - Alcohol/Substance Use Hx Alcohol Use: No - Smoking History Smoking history: Never smoked Have you smoked in the past 12 months: No Home Medications - Allergies Allergies/Adverse Reactions: Allergies Allergy/AdvReac Type Severity Reaction Status Date / Time No Known Allergies Allergy Verified 03/16/19 10:55 - Home Medications Home Medications: Ambulatory Orders Nifedipine [Procardia Xl] 30 mg PO DAILY 03/16/19 Physical Exam for Ortho Vital Signs: Vital Signs Temperature 98.1 F 03/23/19 10:00 Pulse Rate 102 H 03/23/19 10:00 Respiratory Rate 20 03/23/19 10:00 Blood Pressure 133/98 03/23/19 10:00 O2 Sat by Pulse Oximetry (%) 100 03/22/19 21:00 Labs: CBC, BMP 03/17/19 07:20 03/21/19 06:40 INR, PTT INR 0.92 (0.83-1.09) 03/17/19 07:20 - Lower Extremity Knee: Yes: Left, Limited ROM, Pain, Swelling, Tenderness, Other (nvi) Assessment/Plan 48 yo male with PMHx of HTN and CKD.Presents to the ED for evaluation of fever for x 2 days. Patient is from [facility] and arrived [place] the [place] ago. Said he will be here in [place] one [place]. States he developed a fever (subjective as he never took his temp) and chills/cold sweats. Developed left knee pain and swellin for the past 2 days. Pt has h/o of gout. a/p left knee effusion- gout d/w pt and sister who acted as relationship associate start colchicine consent obtained, under sterile technique the left knee was aspirated, 90 cc of inflammatory fluid was obtained, sterile pressure dressing applied, procedure tolerated well fluid sent to lab wbat, rom as tolerated d/w Dr. Durand
[2019-03-23] MEDS: predniSONE 20 MG TABLET (UD) PO SCH (11:33)
--- NOTE | 2019-03-23 13:11 | SPA.PREOP ---
- PRE-OP NOTE Dx: CKD Planned Procedure: LUE AVF, possible graft Surgeon: Rashid Torres Last Vital Signs Temp Pulse Resp BP Pulse Ox 98.1 F 102 H 20 133/98 99 03/23/19 10:00 03/23/19 10:00 03/23/19 10:00 03/23/19 10:00 03/23/19 09:00 CBC, BMP 03/17/19 07:20 03/21/19 06:40 INR, PTT INR 0.92 (0.83-1.09) 03/17/19 07:20 - ASSESSMENT/PLAN Problem List - Problems (1) CKD (chronic kidney disease) Assessment/Plan: 48 yo male with PMHx of HTN and CKD. Patient now amendable to AV fistula placement. 1. Make NPO after midnight except po meds 2. GI/DVT PPX 3. Medical optimization / clearance 4. Consent to be obtained by surgeon after risks, benefits and alternatives discussed with patient and or Health Care Proxy. Code(s): N18.9 - CHRONIC KIDNEY DISEASE, UNSPECIFIED Qualifiers: Chronic kidney disease stage: stage 5, not on chronic dialysis Qualified Code(s): N18.5 - Chronic kidney disease, stage 5 (2) Leukocytosis Code(s): D72.829 - ELEVATED WHITE BLOOD CELL COUNT, UNSPECIFIED (3) Acute renal failure (ARF) Code(s): N17.9 - ACUTE KIDNEY FAILURE, UNSPECIFIED (4) HTN (hypertension) Code(s): I10 - ESSENTIAL (PRIMARY) HYPERTENSION Qualifiers: Hypertension type: essential hypertension Qualified Code(s): I10 - Essential (primary) hypertension Visit type - Case Type Case Type: ED Admission
--- NOTE | 2019-03-23 13:39 | PN ---
Progress Note, Physician History of Present Illness: Pt seen and examined at bedside. He is awake and alert. He denies shortness of breath. - Current Medication List Current Medications: Active Medications Acetaminophen (Tylenol -) 650 mg PO Q6H PRN PRN Reason: FEVER Last Admin: 03/22/19 21:28 Dose: 650 mg Colchicine (Colcrys) 0.6 mg PO TID [facility] Heparin Sodium (Porcine) (Heparin -) 5,000 unit SQ BID [facility] Last Admin: 03/23/19 10:15 Dose: 5,000 unit Nifedipine (Procardia Xl -) 60 mg PO DAILY [facility] Last Admin: 03/23/19 10:14 Dose: 60 mg Prednisone (Deltasone -) 40 mg PO DAILY [facility] Last Admin: 03/23/19 11:33 Dose: 40 mg - Objective Vital Signs: Vital Signs Temperature 98.1 F 03/23/19 10:00 Pulse Rate 102 H 03/23/19 10:00 Respiratory Rate 20 03/23/19 10:00 Blood Pressure 133/98 03/23/19 10:00 O2 Sat by Pulse Oximetry (%) 99 03/23/19 09:00 Constitutional: Yes: Calm Eyes: Yes: Conjunctiva Clear HENT: Yes: Atraumatic Neck: Yes: Supple Cardiovascular: Yes: S1, S2 Respiratory: Yes: CTA Bilaterally Gastrointestinal: Yes: Soft Genitourinary: Yes: WNL Musculoskeletal: Yes: WNL Edema: No Neurological: Yes: Oriented Psychiatric: Yes: Oriented Labs: CBC, BMP 03/17/19 07:20 03/21/19 06:40 INR, PTT INR 0.92 (0.83-1.09) 03/17/19 07:20 Problem List - Problems (1) HTN (hypertension) Code(s): I10 - ESSENTIAL (PRIMARY) HYPERTENSION Qualifiers: Hypertension type: essential hypertension Qualified Code(s): I10 - Essential (primary) hypertension (2) Nephrolithiasis Code(s): N20.0 - CALCULUS OF KIDNEY (3) Acute renal failure (ARF) Code(s): N17.9 - ACUTE KIDNEY FAILURE, UNSPECIFIED Assessment/Plan Current Medications Generic Name Dose Route Start Last Admin Trade Name Freq PRN Reason Stop Dose Admin Acetaminophen 650 mg 03/22/19 20:32 03/22/19 21:28 Tylenol - PO 650 mg Q6H PRN Administration FEVER Colchicine 0.6 mg 03/23/19 14:00 Colcrys PO TID [facility] Heparin Sodium (Porcine) 5,000 unit 03/16/19 22:00 03/23/19 10:15 Heparin - SQ 5,000 unit BID [facility] Administration Nifedipine 60 mg 03/22/19 15:19 03/23/19 10:14 Procardia Xl - PO 60 mg DAILY [facility] Administration Prednisone 40 mg 03/23/19 11:30 03/23/19 11:33 Deltasone - PO 40 mg DAILY [facility] Administration Laboratory Tests 03/21/19 03/23/19 06:40 06:23 Uric Acid 7.8 H 8.5 H Impression 1. MARIO ALBERTO 2. CKD 3. HTN 4. fever 5. leukocytosis 6. gout Plan - monitor bp - last bp was low, change nifediine to 30 mg daily - pt on steroids - restart allopurinol at 100 mg in a week - steroid taper - fistula tomorrow - will follow Dr Guevara
[2019-03-23 13:48] LABS: SYNOVIAL FLUID RBC 923 /mm3; SYNOVIAL FLUID SOURCE SYNOVIAL
--- NOTE | 2019-03-23 13:58 | PN ---
Progress Note, Physician History of Present Illness: Ambulating w/o complaints, denies chest pain and dyspnea. - Current Medication List Current Medications: Active Medications Acetaminophen (Tylenol -) 650 mg PO Q6H PRN PRN Reason: FEVER Last Admin: 03/22/19 21:28 Dose: 650 mg Colchicine (Colcrys) 0.6 mg PO TID [facility] Heparin Sodium (Porcine) (Heparin -) 5,000 unit SQ BID [facility] Last Admin: 03/23/19 10:15 Dose: 5,000 unit Nifedipine (Procardia Xl -) 60 mg PO DAILY [facility] Last Admin: 03/23/19 10:14 Dose: 60 mg Prednisone (Deltasone -) 40 mg PO DAILY [facility] Last Admin: 03/23/19 11:33 Dose: 40 mg - Objective Vital Signs: Vital Signs Temperature 98.1 F 03/23/19 10:00 Pulse Rate 102 H 03/23/19 10:00 Respiratory Rate 20 03/23/19 10:00 Blood Pressure 133/98 03/23/19 10:00 O2 Sat by Pulse Oximetry (%) 99 03/23/19 09:00 Labs: CBC, BMP 03/17/19 07:20 03/21/19 06:40 INR, PTT INR 0.92 (0.83-1.09) 03/17/19 07:20 Problem List - Problems (1) Acute renal failure (ARF) Code(s): N17.9 - ACUTE KIDNEY FAILURE, UNSPECIFIED (2) HTN (hypertension) Code(s): I10 - ESSENTIAL (PRIMARY) HYPERTENSION Qualifiers: Hypertension type: essential hypertension Qualified Code(s): I10 - Essential (primary) hypertension (3) Nephrolithiasis Code(s): N20.0 - CALCULUS OF KIDNEY (4) CKD (chronic kidney disease) Code(s): N18.9 - CHRONIC KIDNEY DISEASE, UNSPECIFIED Qualifiers: Chronic kidney disease stage: stage 5, not on chronic dialysis Qualified Code(s): N18.5 - Chronic kidney disease, stage 5 Assessment/Plan 03/17/2019 Echo: Normal LV and RV size and fxn, tr TR 03/16/2019 Echogenic kidneys c/w medicorenal disease, bilateral renal cysts and left kidney stone 1. Acute on CKD V with proteinuria 2. HTN 3. Leukocytosis 4. Gout with left knee effusion post arthrocentesis PLAN: 1. Plan for LUE AVF 2. Continue Procardia XL 30 qd 3. Colchicine, steroid taper, f/u crystal analysis
[2019-03-23] MEDS ORDERED: PT OWN MED DRAWER 7, Y5N ONE ×2 (14:26→21:09)
[2019-03-23] MEDS: COLCHICINE 0.6 MG CAP PO SCH ×2 (14:28→22:25)
[2019-03-23 14:37] LABS: SYNOVIAL FLUID LYMPHOCYTES 8 %; SYNOVIAL FLUID MACROPHAGES 2 %; SYNOVIAL FLUID MONOCYTES 12 %; SYNOVIAL FLUID NEUTROPHILS 78 %
[2019-03-23 14:39] LABS: CRYSTALS,SYNOVIAL FLUID POSITIVE
--- NOTE | 2019-03-23 17:57 | PN ---
Progress Note, Physician - Current Medication List Current Medications: Active Medications Acetaminophen (Tylenol -) 650 mg PO Q6H PRN PRN Reason: FEVER Last Admin: 03/22/19 21:28 Dose: 650 mg Colchicine (Colcrys) 0.6 mg PO TID [facility] Last Admin: 03/23/19 14:28 Dose: 0.6 mg Heparin Sodium (Porcine) (Heparin -) 5,000 unit SQ BID [facility] Last Admin: 03/23/19 10:15 Dose: 5,000 unit Nifedipine (Procardia Xl -) 60 mg PO DAILY [facility] Last Admin: 03/23/19 10:14 Dose: 60 mg Prednisone (Deltasone -) 40 mg PO DAILY [facility] Last Admin: 03/23/19 11:33 Dose: 40 mg - Objective Vital Signs: Vital Signs Temperature 98.1 F 03/23/19 16:30 Pulse Rate 101 H 03/23/19 16:30 Respiratory Rate 20 03/23/19 16:30 Blood Pressure 137/91 03/23/19 16:30 O2 Sat by Pulse Oximetry (%) 99 03/23/19 09:00 Constitutional: Yes: No Distress HENT: Yes: Atraumatic Neck: Yes: Supple Cardiovascular: Yes: Regular Rate and Rhythm Respiratory: Yes: CTA Bilaterally Gastrointestinal: Yes: Normal Bowel Sounds Extremities: Yes: Other (L knee s/p drainage) Neurological: Yes: Alert, Oriented Labs: CBC, BMP 03/17/19 07:20 03/21/19 06:40 INR, PTT INR 0.92 (0.83-1.09) 03/17/19 07:20 Problem List - Problems (1) Acute renal failure (ARF) Assessment/Plan: for HD for fistula Code(s): N17.9 - ACUTE KIDNEY FAILURE, UNSPECIFIED (2) CKD (chronic kidney disease) Code(s): N18.9 - CHRONIC KIDNEY DISEASE, UNSPECIFIED Qualifiers: Chronic kidney disease stage: stage 5, not on chronic dialysis Qualified Code(s): N18.5 - Chronic kidney disease, stage 5 (3) HTN (hypertension) Code(s): I10 - ESSENTIAL (PRIMARY) HYPERTENSION Qualifiers: Hypertension type: essential hypertension Qualified Code(s): I10 - Essential (primary) hypertension (4) Gout attack Assessment/Plan: pt not sure about gout will check uric acid level consult ortho s/p knee aspiration Code(s): M10.9 - GOUT, UNSPECIFIED Assessment/Plan medically stable
[2019-03-24] MEDS ORDERED: PT OWN MED DRAWER 7, Y5N ONE ×3 (05:26→22:07)
[2019-03-24] MEDS: COLCHICINE 0.6 MG CAP PO SCH ×3 (05:41→22:09)
--- NOTE | 2019-03-24 09:28 | PN ---
Progress Note, Physician History of Present Illness: Awaiting LUE AVF, denies chest pain, dyspnea, left knee pain. - Current Medication List Current Medications: Active Medications Acetaminophen (Tylenol -) 650 mg PO Q6H PRN PRN Reason: FEVER Last Admin: 03/22/19 21:28 Dose: 650 mg Colchicine (Colcrys) 0.6 mg PO TID [facility] Last Admin: 03/24/19 05:41 Dose: 0.6 mg Nifedipine (Procardia Xl -) 60 mg PO DAILY [facility] Last Admin: 03/23/19 10:14 Dose: 60 mg Prednisone (Deltasone -) 40 mg PO DAILY [facility] Last Admin: 03/23/19 11:33 Dose: 40 mg - Objective Vital Signs: Vital Signs Temperature 98 F 03/24/19 06:59 Pulse Rate 89 03/24/19 06:59 Respiratory Rate 20 03/24/19 06:59 Blood Pressure 138/86 03/24/19 06:59 O2 Sat by Pulse Oximetry (%) 98 03/23/19 21:00 Constitutional: Yes: No Distress, Calm Neck: Yes: Supple Cardiovascular: Yes: Regular Rate and Rhythm Respiratory: Yes: Regular, CTA Bilaterally Gastrointestinal: Yes: Normal Bowel Sounds, Soft Edema: No Labs: CBC, BMP 03/17/19 07:20 03/21/19 06:40 INR, PTT INR 0.92 (0.83-1.09) 03/17/19 07:20 Problem List - Problems (1) Acute renal failure (ARF) Code(s): N17.9 - ACUTE KIDNEY FAILURE, UNSPECIFIED (2) HTN (hypertension) Code(s): I10 - ESSENTIAL (PRIMARY) HYPERTENSION Qualifiers: Hypertension type: essential hypertension Qualified Code(s): I10 - Essential (primary) hypertension (3) Nephrolithiasis Code(s): N20.0 - CALCULUS OF KIDNEY (4) CKD (chronic kidney disease) Code(s): N18.9 - CHRONIC KIDNEY DISEASE, UNSPECIFIED Qualifiers: Chronic kidney disease stage: stage 5, not on chronic dialysis Qualified Code(s): N18.5 - Chronic kidney disease, stage 5 Assessment/Plan 03/17/2019 Echo: Normal LV and RV size and fxn, tr TR 03/16/2019 Echogenic kidneys c/w medicorenal disease, bilateral renal cysts and left kidney stone 1. Acute on CKD V with proteinuria 2. HTN 3. Leukocytosis 4. Gout with left knee effusion post arthrocentesis PLAN: 1. Plan for LUE AVF 2. Continue Procardia XL 60 qd 3. Colchicine, steroid taper, crystal analysis confirms gout
[2019-03-24] MEDS: NIFEdipine E.R. 30 MG TABLET (FP) PO SCH (09:53)
[2019-03-24] MEDS: predniSONE 20 MG TABLET (UD) PO SCH (09:53)
--- NOTE | 2019-03-24 16:18 | PN ---
Progress Note, Physician History of Present Illness: Pt seen and examined at bedside. He is awake and alert. HE is going for AV fistula creation today. - Current Medication List Current Medications: Active Medications Acetaminophen (Tylenol -) 650 mg PO Q6H PRN PRN Reason: FEVER Last Admin: 03/22/19 21:28 Dose: 650 mg Colchicine (Colcrys) 0.6 mg PO TID [facility] Last Admin: 03/24/19 13:19 Dose: 0.6 mg Nifedipine (Procardia Xl -) 60 mg PO DAILY [facility] Last Admin: 03/24/19 09:53 Dose: 60 mg Prednisone (Deltasone -) 40 mg PO DAILY [facility] Last Admin: 03/24/19 09:53 Dose: 40 mg - Objective Vital Signs: Vital Signs Temperature 98.4 F 03/24/19 14:00 Pulse Rate 93 H 03/24/19 14:00 Respiratory Rate 18 03/24/19 14:00 Blood Pressure 140/96 03/24/19 14:00 O2 Sat by Pulse Oximetry (%) 98 03/23/19 21:00 Constitutional: Yes: Calm Eyes: Yes: Conjunctiva Clear HENT: Yes: Atraumatic Neck: Yes: Supple Cardiovascular: Yes: S1, S2 Respiratory: Yes: CTA Bilaterally Gastrointestinal: Yes: Normal Bowel Sounds, Soft Genitourinary: Yes: WNL Musculoskeletal: Yes: WNL Edema: No Neurological: Yes: Oriented Psychiatric: Yes: Oriented Labs: CBC, BMP 03/17/19 07:20 03/21/19 06:40 INR, PTT INR 0.92 (0.83-1.09) 03/17/19 07:20 Problem List - Problems (1) HTN (hypertension) Code(s): I10 - ESSENTIAL (PRIMARY) HYPERTENSION Qualifiers: Hypertension type: essential hypertension Qualified Code(s): I10 - Essential (primary) hypertension (2) Nephrolithiasis Code(s): N20.0 - CALCULUS OF KIDNEY (3) Acute renal failure (ARF) Code(s): N17.9 - ACUTE KIDNEY FAILURE, UNSPECIFIED Assessment/Plan Current Medications Generic Name Dose Route Start Last Admin Trade Name Freq PRN Reason Stop Dose Admin Acetaminophen 650 mg 03/22/19 20:32 03/22/19 21:28 Tylenol - PO 650 mg Q6H PRN Administration FEVER Colchicine 0.6 mg 03/23/19 14:00 03/24/19 13:19 Colcrys PO 0.6 mg TID [facility] Administration Nifedipine 60 mg 03/22/19 15:19 03/24/19 09:53 Procardia Xl - PO 60 mg DAILY [facility] Administration Prednisone 40 mg 03/23/19 11:30 03/24/19 09:53 Deltasone - PO 40 mg DAILY [facility] Administration Impression 1. MARIO ALBERTO 2. CKD 3. HTN 4. fever 5. leukocytosis 6. gout Plan - bp stable, kept nifedipine at 60 mg - taper steroids - pt for fistula placement today - will need outpt follow up to monitor renal function - restart allopurinol at 100 mg in a week Dr Guevara
--- NOTE | 2019-03-24 16:23 | PN ---
Progress Note, Physician - Current Medication List Current Medications: Active Medications Acetaminophen (Tylenol -) 650 mg PO Q6H PRN PRN Reason: FEVER Last Admin: 03/22/19 21:28 Dose: 650 mg Colchicine (Colcrys) 0.6 mg PO TID [facility] Last Admin: 03/24/19 13:19 Dose: 0.6 mg Nifedipine (Procardia Xl -) 60 mg PO DAILY [facility] Last Admin: 03/24/19 09:53 Dose: 60 mg Prednisone (Deltasone -) 40 mg PO DAILY [facility] Last Admin: 03/24/19 09:53 Dose: 40 mg - Objective Vital Signs: Vital Signs Temperature 98.4 F 03/24/19 14:00 Pulse Rate 93 H 03/24/19 14:00 Respiratory Rate 18 03/24/19 14:00 Blood Pressure 140/96 03/24/19 14:00 O2 Sat by Pulse Oximetry (%) 98 03/23/19 21:00 Constitutional: Yes: No Distress HENT: Yes: Atraumatic Neck: Yes: Supple Cardiovascular: Yes: Regular Rate and Rhythm Respiratory: Yes: CTA Bilaterally Gastrointestinal: Yes: Normal Bowel Sounds Extremities: Yes: WNL Edema: No Neurological: Yes: Alert, Oriented Labs: CBC, BMP 03/17/19 07:20 03/21/19 06:40 INR, PTT INR 0.92 (0.83-1.09) 03/17/19 07:20 Problem List - Problems (1) Acute renal failure (ARF) Assessment/Plan: for HD for fistula Code(s): N17.9 - ACUTE KIDNEY FAILURE, UNSPECIFIED (2) CKD (chronic kidney disease) Code(s): N18.9 - CHRONIC KIDNEY DISEASE, UNSPECIFIED Qualifiers: Chronic kidney disease stage: stage 5, not on chronic dialysis Qualified Code(s): N18.5 - Chronic kidney disease, stage 5 (3) HTN (hypertension) Code(s): I10 - ESSENTIAL (PRIMARY) HYPERTENSION Qualifiers: Hypertension type: essential hypertension Qualified Code(s): I10 - Essential (primary) hypertension (4) Gout attack Assessment/Plan: pt not sure about gout will check uric acid level consult ortho s/p knee aspiration Code(s): M10.9 - GOUT, UNSPECIFIED
[2019-03-24] MEDS ORDERED: LIDOCAINE HCL 1%, 10 MG/ML (20ML VIAL) ONE (17:15)
[2019-03-24] MEDS ORDERED: HEPARIN NA (PORCINE) 5,000 UNITS/ML 1ML VIAL ONE (17:15)
[2019-03-24] MEDS ORDERED: fentaNYL CITRATE 250 MCG/5 ML VIAL ONE (17:21)
[2019-03-24] MEDS ORDERED: MIDAZOLAM HCL 2 MG/2 ML SINGLE DOSE VIAL ONE ×2 (17:21→17:48)
[2019-03-24] MEDS ORDERED: KETAMINE HCL 200 MG/20 ML VIAL ONE (17:32)
[2019-03-24] MEDS ORDERED: ceFAZolin SODIUM 1 GM VIAL IVPB ONE (17:58)
[2019-03-24] MEDS ORDERED: ONDANSETRON 4 MG/2 ML VIAL IVPUSH PRN ×2 (17:59→20:05)
[2019-03-24] MEDS ORDERED: PROMETHAZINE HCL 25 MG/1 ML VIAL IVPUSH PRN ×2 (17:59→20:05)
[2019-03-24] MEDS ORDERED: SODIUM CHLORIDE 1,000 ML IV SCH ×2 (18:00→20:05)
[2019-03-24] MEDS ORDERED: PROPOFOL 20 ML ONE ×4 (18:06→19:29)
[2019-03-24] MEDS ORDERED: LIDOCAINE HCL 1%, 10 MG/ML (20ML VIAL) NR ONE (18:07)
[2019-03-24] MEDS ORDERED: POVIDONE-IODINE OINTMENT 10% - 28.4 GM TUBE ONE (18:11)
[2019-03-24] MEDS ORDERED: ceFAZolin SODIUM 1 GM VIAL ONE ×2 (18:41)
[2019-03-24] MEDS ORDERED: METOPROLOL TARTRATE 5 MG/5 ML VIAL ONE (18:41)
--- NOTE | 2019-03-24 19:49 | OP ---
Operative Note - Note: Operative Date: 03/24/19 Pre-Operative Diagnosis: Acute renal failure Operation: creation of left cephalic vein fistula Post-Operative Diagnosis: Same as Pre-op Surgeon: Rashid Torres Anesthesia: Fractional Estimated Blood Loss (mls): 50 Operative Report Dictated: Yes
[2019-03-24] MEDS ORDERED: ACETAMINOPHEN 325 MG TABLET (FP) PO PRN (20:05)
[2019-03-25] MEDS ORDERED: PT OWN MED DRAWER 7, Y5N ONE (05:50)
[2019-03-25] MEDS: COLCHICINE 0.6 MG CAP PO SCH (06:11)
[2019-03-25] MEDS ORDERED: predniSONE 20 MG TABLET (UD) PO SCH ×2 (10:00→12:40)
[2019-03-25] MEDS ORDERED: NIFEdipine E.R. 30 MG TABLET (FP) PO SCH (10:00)
[2019-03-25 10:01] VITALS: BP 125/96; PULSE 91; TEMP 98.3
--- NOTE | 2019-03-25 10:07 | PN ---
Progress Note (short form) - Note Progress Note: POD #1 left AVF creation. Patient seen and examined at bedside with no complaints. Patient tolerating diet and pain free. Denies any CP, SOB, N/V, fever or chills. Vital Signs Temp 98.3 F 03/25/19 09:00 Pulse 91 H 03/25/19 09:00 Resp 18 03/25/19 09:00 BP 125/96 03/25/19 09:00 Pulse Ox 97 03/24/19 21:00 Intake & Output 03/24/19 03/24/19 03/25/19 11:59 23:59 11:59 Intake Total 0 450 0 Output Total 850 Balance 0 -400 0 Intake: IV 450 0 Normal Saline - 1,000 ml 0 @ 42 mls/hr IV ASDIR [facility] Rx#:[id number] IVPB 0 Output: Urine 800 Void 800 Estimated Blood Loss 50 Other: Voiding Method Urinal Urinal # Unmeasured Voids Void 2 Bowel Movement No No PE: A&Ox3, NAD Unlabored resp on RA left UE dressing c/d/i with surrounding tissue intact, no erythema, edema, or active d/c. +2 radial pulse. left Arm and hand warm and well perfused with no edema. moving elbow wrist and fingers without restriction. Problem List - Problems (1) Acute renal failure (ARF) Assessment/Plan: POD #1 Left AVF creation doing well. -d/c home today -dressing care outlined in d/c instructions -f/u with Dr Torres as outpatient. Evaluation and plan discussed with Dr Torres. Code(s): N17.9 - ACUTE KIDNEY FAILURE, UNSPECIFIED (2) CKD (chronic kidney disease) Code(s): N18.9 - CHRONIC KIDNEY DISEASE, UNSPECIFIED Qualifiers: Chronic kidney disease stage: stage 5, not on chronic dialysis Qualified Code(s): N18.5 - Chronic kidney disease, stage 5
--- NOTE | 2019-03-25 10:10 | PN ---
Progress Note (short form) - Note Progress Note: Anesthesia postop note 48 y/o M s/p MAC anesthesia for AV fistula creation POD #1, vss, aaox3, no complaints. No anesthesia complications.
--- NOTE | 2019-03-25 10:17 | DS ---
Physical Examination Vital Signs: Vital Signs Temperature 98.3 F 03/25/19 09:00 Pulse Rate 91 H 03/25/19 09:00 Respiratory Rate 18 03/25/19 09:00 Blood Pressure 125/96 03/25/19 09:00 O2 Sat by Pulse Oximetry (%) 97 03/24/19 21:00 Labs: CBC, BMP 03/17/19 07:20 03/21/19 06:40 Discharge Summary Problems reviewed: Yes Reason For Visit: ACUTE RENAL FAILURE Current Active Problems Acute renal failure (ARF) (Acute) CKD (chronic kidney disease) (Acute) Gout attack (Acute) HTN (hypertension) (Acute) Leukocytosis (Acute) Nephrolithiasis (Acute) Condition: Good - Instructions Diet, Activity, Other Instructions: Post-operative Instructions Wound: Keep your dressing clean and dry and in place for 72 hours. You may shower in 48 hours with a waterproof bag or Saran wrap over the original dressing. In 72 hours when you remove the dressing, you may wet the incision in the shower ONLY, do not submerge the incision. Allow soap and water to run over the incision, do not scrub the incision, pat dry well after showering. Check the incision daily after removal of the dressing for redness or drainage. If you note any redness or drainage, contact your surgeon immediately. Do not swim or soak in water (bath/hot tub, etc) until cleared by your surgeon as this can lead to infection. Do not put creams or ointments on the wound until cleared by your surgeon. Diet: You may resume your regular diet unless otherwise instructed by your physician. Increase your fiber intake if taking narcotic pain medications as constipation is a common side effect. Pain Relief: Take pain medication as prescribed. Do not drive, drink alcohol or operate heavy machinery while taking narcotic pain medications. The pain medication you have been prescribed for pain contains Acetaminophen (Tylenol), do not take additional Tylenol with this pain medication. You should not exceed more than 4g (4000mg) of Tylenol in 24 hours as this can lead to liver damage or failure. Activity: No heavy lifting with your operative arm until cleared by your surgeon. Do no wear any occlusive jewelry on your operative arm as this can affect the functioning of your fistula. Follow-up Please call the office to schedule your follow up appointment in 2 weeks. Call your doctors office or go to the ER immediately if you develop: Trouble breathing, chest tightness or shortness of breath Oral temperature greater than 100.5 F Excessive redness, swelling, or drainage at the incision site. Foul odor from the incision. New, increasing pain/numbness/weakness or coolness in your arm. Follow up with Dr Torres as outpatient. Referrals: Rashid Torres DO [Staff Physician] - Andreia Guevara MD [Staff Physician] - Disposition: HOME - Home Medications Comprehensive Discharge Medication List: Ambulatory Orders Nifedipine [Procardia Xl] 30 mg PO DAILY 03/16/19
--- NOTE | 2019-03-25 11:35 | PN ---
Progress Note (short form) - Note Progress Note: POD #1 Left UE AVF creation asked to see the patient again after he was complaining of coolness in his thumb and index fingers. Patient denies any pain or paresthesias. PE: Left UE hand and fingers warm to touch throughout. Incision c/d/i with jeffery in situ and mild ecchymosis with no tracking erythema or active d/c. palpable thrill, +2 radial and ulnar pulses equal to contralateral side. Full ROM at elbow, wrist, hand/fingers without pain. sensation intact throughout Plan: -d/c home -follow up with Dr Torres. Problem List - Problems (1) Acute renal failure (ARF) Code(s): N17.9 - ACUTE KIDNEY FAILURE, UNSPECIFIED (2) CKD (chronic kidney disease) Code(s): N18.9 - CHRONIC KIDNEY DISEASE, UNSPECIFIED Qualifiers: Chronic kidney disease stage: stage 5, not on chronic dialysis Qualified Code(s): N18.5 - Chronic kidney disease, stage 5
--- NOTE | 2019-03-25 11:54 | DS ---
Physical Examination Vital Signs: Vital Signs Temperature 98.3 F 03/25/19 09:00 Pulse Rate 91 H 03/25/19 09:00 Respiratory Rate 18 03/25/19 09:00 Blood Pressure 125/96 03/25/19 09:00 O2 Sat by Pulse Oximetry (%) 97 03/24/19 21:00 Constitutional: Yes: No Distress HENT: Yes: Atraumatic Neck: Yes: Supple Cardiovascular: Yes: Regular Rate and Rhythm Respiratory: Yes: CTA Bilaterally Gastrointestinal: Yes: Normal Bowel Sounds Edema: No Neurological: Yes: Alert, Oriented Labs: CBC, BMP 03/17/19 07:20 03/21/19 06:40 Discharge Summary Problems reviewed: Yes Reason For Visit: ACUTE RENAL FAILURE Current Active Problems Acute renal failure (ARF) (Acute) CKD (chronic kidney disease) (Acute) Gout attack (Acute) HTN (hypertension) (Acute) Leukocytosis (Acute) Nephrolithiasis (Acute) Condition: Good - Instructions Diet, Activity, Other Instructions: Post-operative Instructions Wound: Keep your dressing clean and dry and in place for 72 hours. You may shower in 48 hours with a waterproof bag or Saran wrap over the original dressing. In 72 hours when you remove the dressing, you may wet the incision in the shower ONLY, do not submerge the incision. Allow soap and water to run over the incision, do not scrub the incision, pat dry well after showering. Check the incision daily after removal of the dressing for redness or drainage. If you note any redness or drainage, contact your surgeon immediately. Do not swim or soak in water (bath/hot tub, etc) until cleared by your surgeon as this can lead to infection. Do not put creams or ointments on the wound until cleared by your surgeon. Diet: You may resume your regular diet unless otherwise instructed by your physician. Increase your fiber intake if taking narcotic pain medications as constipation is a common side effect. Pain Relief: Take pain medication as prescribed. Do not drive, drink alcohol or operate heavy machinery while taking narcotic pain medications. The pain medication you have been prescribed for pain contains Acetaminophen (Tylenol), do not take additional Tylenol with this pain medication. You should not exceed more than 4g (4000mg) of Tylenol in 24 hours as this can lead to liver damage or failure. Activity: No heavy lifting with your operative arm until cleared by your surgeon. Do no wear any occlusive jewelry on your operative arm as this can affect the functioning of your fistula. Follow-up Please call the office to schedule your follow up appointment in 2 weeks. Call your doctors office or go to the ER immediately if you develop: Trouble breathing, chest tightness or shortness of breath Oral temperature greater than 100.5 F Excessive redness, swelling, or drainage at the incision site. Foul odor from the incision. New, increasing pain/numbness/weakness or coolness in your arm. Follow up with Dr Torres as outpatient. Referrals: Rashid Torres DO [Staff Physician] - Andreia Guevara MD [Staff Physician] - Disposition: HOME - Home Medications Comprehensive Discharge Medication List: Ambulatory Orders Colchicine [Colcrys] 0.6 mg PO DAILY #30 cap 03/25/19 Nifedipine ER [Procardia XL -] 60 mg PO DAILY #30 [id number] 03/25/19 predniSONE [Deltasone -] 30 mg PO DAILY #30 tablet 03/25/19
--- NOTE | 2019-03-25 12:38 | PN ---
Progress Note, Physician History of Present Illness: Pt seen and examined at bedside. He is awake and alert. He has no complaints and is eager to go home. On further questioning he says that his left index finger and thumb feel a little cooler than the right side. He denies pain or loss of sensation. - Current Medication List Current Medications: Active Medications Acetaminophen (Tylenol -) 650 mg PO Q6H PRN PRN Reason: FEVER Last Admin: 03/24/19 22:08 Dose: 650 mg Colchicine (Colcrys) 0.6 mg PO TID [facility] Last Admin: 03/25/19 06:11 Dose: 0.6 mg Sodium Chloride (Normal Saline -) 1,000 mls @ 42 mls/hr IV ASDIR [facility] Last Admin: 03/24/19 22:10 Dose: 42 mls/hr Nifedipine (Procardia Xl -) 60 mg PO DAILY [facility] Last Admin: 03/25/19 09:05 Dose: 60 mg Prednisone (Deltasone -) 40 mg PO DAILY [facility] Last Admin: 03/25/19 09:05 Dose: 40 mg - Objective Vital Signs: Vital Signs Temperature 98.3 F 03/25/19 09:00 Pulse Rate 91 H 03/25/19 09:00 Respiratory Rate 18 03/25/19 09:00 Blood Pressure 125/96 03/25/19 09:00 O2 Sat by Pulse Oximetry (%) 97 03/24/19 21:00 Constitutional: Yes: Calm Eyes: Yes: Conjunctiva Clear HENT: Yes: Atraumatic Neck: Yes: Supple Cardiovascular: Yes: S1, S2 Respiratory: Yes: CTA Bilaterally Gastrointestinal: Yes: Normal Bowel Sounds, Soft Genitourinary: Yes: WNL Musculoskeletal: Yes: WNL Extremities: Yes: Other (left arm av fistula with thrill and bruit. pulses intact bilateraly. sensation intake, temp is same to touch bilateraly) Neurological: Yes: Oriented Psychiatric: Yes: Oriented Labs: CBC, BMP 03/17/19 07:20 03/21/19 06:40 INR, PTT INR 0.92 (0.83-1.09) 03/17/19 07:20 Problem List - Problems (1) HTN (hypertension) Code(s): I10 - ESSENTIAL (PRIMARY) HYPERTENSION Qualifiers: Hypertension type: essential hypertension Qualified Code(s): I10 - Essential (primary) hypertension (2) Nephrolithiasis Code(s): N20.0 - CALCULUS OF KIDNEY (3) Acute renal failure (ARF) Code(s): N17.9 - ACUTE KIDNEY FAILURE, UNSPECIFIED Assessment/Plan Current Medications Generic Name Dose Route Start Last Admin Trade Name Freq PRN Reason Stop Dose Admin Acetaminophen 650 mg 03/24/19 20:05 03/24/19 22:08 Tylenol - PO 650 mg Q6H PRN Administration FEVER Colchicine 0.6 mg 03/24/19 22:00 03/25/19 06:11 Colcrys PO 0.6 mg TID [facility] Administration Sodium Chloride 1,000 mls @ 42 mls/hr 03/24/19 20:05 03/24/19 22:10 Normal Saline - IV 42 mls/hr ASDIR [facility] Administration Nifedipine 60 mg 03/25/19 10:00 03/25/19 09:05 Procardia Xl - PO 60 mg DAILY [facility] Administration Prednisone 40 mg 03/25/19 10:00 03/25/19 09:05 Deltasone - PO 40 mg DAILY [facility] Administration Impression 1. MARIO ALBERTO 2. CKD 3. HTN 4. fever 5. leukocytosis 6. gout Plan - taper down steroids - called vascular to re-evaluate left arm before discharge - will need outpt follow up to monitor renal function - restart allopurinol at [address] Guevara
--- NOTE | 2019-04-12 13:50 | OP ---
DATE OF OPERATION: 03/24/2019 PREOPERATIVE DIAGNOSIS: Acute renal failure. POSTOPERATIVE DIAGNOSIS: Acute renal failure. PROCEDURE: Creation of left cephalic vein fistula. SURGEON: Rashid Herman MD ANESTHESIA: Fractional. BLOOD LOSS: 50 mL. INDICATIONS FOR PROCEDURE: Patient is an inhouse patient that is in acute renal failure and needs dialysis access placement. Patient had preoperative vein mapping showing he has a good left cephalic vein in his left arm. Patient was consented for the procedure understanding all risks, benefits, alternatives and then taken in the operating room. DESCRIPTION OF PROCEDURE: Once in the operating room, was laid on the operating table in supine manner, and the area of the left arm was prepped and draped in a sterile surgical manner. Using ultrasound guidance, we then mapped out the cephalic vein and the brachial artery, and those were marked on the arm and below the antecubital space in a transverse incision. We then went ahead and injected 15 mL of lidocaine 1% over the incision. The left arm had been prepped and draped in a sterile surgical manner. We then went ahead need took a No. 15 blade and made a 5-cm incision over our transverse incision that was drawn out. We then went ahead and used Bovie electrocautery, and we got down through all the subcutaneous tissue. We then dissected out our cephalic vein anteriorly and posteriorly. All branches were ligated using 2-0 silk. We then went medially and went through the fascia and got down to the brachial artery. Brachial artery was dissected anteriorly and posteriorly, and Vessel Loops were placed proximally and distally, 5000 units of IV heparin were then administered to the patient. We then ligated the cephalic vein distally using 2-0 silk, and we placed a 4-[place] feeding tube into the vein, and the vein dilated up appropriately, and there was good backflow. Then using our micro Brown scissors, we were able to make a 6-mm venotomy on the vein. After administering 5000 units of IV heparin and after 3 minutes, we were able to get distal and proximal thrill in our artery. We then used a 15 blade, made an arteriotomy, extending it to 7 mm using Brown scissors, 6-0 Prolene stay sutures were placed. We then went ahead and used 6-0 Prolene double arm, went outside on the vein and inside on the artery and ran the suture around forming an anastomosis between the artery and the vein. Once completed, we opened distal artery 1st and the proximal artery, and there was a good thrill in our AV fistula and good flow. The wound was then well irrigated. Surgicel was placed, 3-0 Vicryl was used, and subcutaneous tissues were approximated in interrupted manner, and skin was closed with skin jeffery. The area was wet and dried, 4 x 4's, Tegaderms were placed. Patient tolerated the procedure well with no complication. Patient was transferred to PACU in stable condition. The fistula had a good bruits and thrill in the left arm. RASHID HERMAN DO [id number]
== END 2019-03-25 13:02 | disposition home or self-care (01) | DRG 444 ==
LOC: JER 10:48 → JERBED 12:34 → J8W 18:19
PROVIDERS: ADMIT Internal Medicine; ATTEND Internal Medicine
PROC: 0S9D3ZZ Drainage of Left Knee Joint, Percutaneous Approach (ICD-10-PCS; 2019-03-23)
PROC: 03180JD Bypass Left Brachial Artery to Upper Arm Vein with Synthetic Substitute, Open Approach (ICD-10-PCS; principal; 2019-03-24 15:30)
DX: N17.9 Acute kidney failure, unspecified (principal); R50.9 Fever, unspecified; I12.0 Hypertensive chronic kidney disease with stage 5 chronic kidney disease or end stage renal disease; N18.5 Chronic kidney disease, stage 5; N28.1 Cyst of kidney, acquired; D72.829 Elevated white blood cell count, unspecified; M10.9 Gout, unspecified; M25.462 Effusion, left knee
CPT/HCPCS: 36415; 71046-TC-FY; 74176-TC; 76775-TC; 80053; 81003; 82436; 82550; 82565; 83516; 83520; 83605; 83690; 83735; 84100; 84133; 84155; 84165; 84300; 84484; 84550; 85025; 85610; 85730; 86038; 86225; 86256; 86704; 86706; 86707; 86708; 86709; 87040; 87070; 87075; 87086; 87205; 87340; 87389; 87522; 89051; 89060; 90670; 93005; 93010; 93306-TC; 93930; 93971; 94760; 99283-25; G0008; G0009; J0131; J1644; J7030; Q2036